=== PATIENT | male | born 1940 | race Caucasian/White ===

== ENCOUNTER 2017-11-17 21:13 | Inpatient (IN) ==
--- NOTE | 2017-11-17 21:37 | XR ---
EXAM DATE: 11/17/2017 9:32 PM EDT AGE/SEX: 89 years / Male INDICATIONS: Stemi alert. CLINICAL DATA: This is the patient's initial encounter. Patient reports that signs and symptoms have been present for 1 day and indicates a pain score of 4/10. MEDICAL/SURGICAL HISTORY: . Unobtainable. . Unobtainable. COMPARISON: No prior exams available for comparison. FINDINGS: A single AP view of the chest demonstrates the lungs to be symmetrically aerated without evidence of mass, infiltrate or effusion. The cardiomediastinal contours are unremarkable. Osseous structures a re intact. Mild atherosclerotic changes are present in the aorta. There are overlying electrocardiog delroy leads. CONCLUSION: No acute cardiopulmonary disease. Electronically signed by: Vinod Baptiste MD 11/17/2017 9:36 PM EDT
[2017-11-17] MEDS ORDERED: Sod Chloride 0.9% Inj 1,000 ML IV.SIG ONE ×2 (21:39→23:31)
[2017-11-17] MEDS ORDERED: Morphine Inj 4 MG/ML Vial IV.PUSH ONE (21:40)
[2017-11-17 21:55] LABS: Baso % (Auto) 0.4 % (0.0-2.0); Eos # (Auto) 0.1 th/mm3 (0.0-0.4); Eos % (Auto) 0.6 % (0.0-4.0); Hematocrit 41.2 % (39.0-51.0); Hemoglobin 13.1 gm/dL (13.0-17.0); Lymph # (Auto) 1.1 th/mm3 (1.0-4.8); Lymph % (Auto) 8.5 % (9.0-44.0); Mean Corpuscular HGB Conc 31.8 % (32.0-36.0); Mean Corpuscular Hemoglobin 29.9 pg (27.0-34.0); Mean Corpuscular Volume 93.9 fL (80.0-100.0); Mean Platelet Volume 9.6 fL (7.0-11.0); Mono % (Auto) 7.9 % (0.0-8.0); Neut # (Auto) 10.3 th/mm3 (1.8-7.7); Neut % (Auto) 82.6 % (16.0-70.0); Platelet Count 162 th/mm3 (150-450); Red Blood Count 4.39 mil/mm3 (4.50-5.90); Red Cell Distribution Width 14.4 % (11.6-17.2); White Blood Count 12.4 th/mm3 (4.0-11.0)
[2017-11-17 22:05] LABS: Activated Partial Thrombo Time 23.5 sec (24.3-30.1); INR 1.2 Ratio; Prothrombin Time 11.8 sec (9.8-11.6)
--- NOTE | 2017-11-17 22:19 | ED ---
HPI General Chief complaint: STEMI Alert Stated complaint: Stemi Time Seen by Provider: 11/17/17 21:36 Source: patient History of Present Illness HPI narrative: The patient is a reportedly 77 year old male who presents to the [facility] emergency department with a history of being brought in as a STEMI alert by ambulance services after the patient was noted to have ST segment elevation in the inferior leads and depression in the lateral leads. The patient denied having any chest pain, chest pressure, or shortness of breath. The patient reports that he called ambulance services for abdominal pain. He reports that the abdominal pain is a severe cramping sensation in the lower portion of his abdomen and bilateral lower quadrants. He reports that the abdominal pain began 1-1/2 hours ago. He reports that over the last week and a half he is also had diarrhea intermittently. He denies noticing any blood in his stool or black or tarry stools. Upon ambulance services arrival the patient's blood pressure was noted to be in the 80s systolic. The patient had IV access obtained and was given normal saline at 900 mL bolus times with improvement in his blood pressure up to 106 systolic just prior to arrival. The patient had dusky coloration to his lips, however his O2 saturation was reportedly 96% on room air. The patient's blood sugar prior to arrival was reportedly 219. The patient reportedly has a history of hypertension, diabetes , coronary artery disease with a stent placed previously. He cannot recall the name of his primary care physician or chair trimmer at this time. The patient denies having any known recent fevers, cough, congestion, neck pain, vomiting, urinary symptoms, or neurologic symptoms. Related Data Home Medications Medication Instructions Recorded Confirmed Unable to Obtain Home Meds 11/17/17 11/17/17 Allergies Allergy/AdvReac Type Severity Reaction Status Date / Time No Known Allergies Allergy Verified 11/17/17 21:15 Review of Systems ROS: all other systems reviewed are negative (Except for that which was mentioned in the HPI) FOR[facility]LY [facility] Medical History Medical History Diabetes (Acute) HTN (hypertension) (Acute) Social History Social History Substance History: No History of Abuse Smoking Status: Never smoker How Often Do You Have a Drink Containing Alcohol: Never Recent Travel in [facility] within the Last 8 Weeks: No Recent Out of Country Travel within the Last 8 Weeks: No Immunization History Tetanus Immunization: Unsure Hx Influenza Vaccine This Season: No Exam Const General: cooperative, well developed and acute distress (Related to abdominal pain that he reports is) severe Nutritional Appearance: well nourished Orientation: alert, awake and oriented x3 HENMT Head: normocephalic and atraumatic Nose: no nasal discharge and no epistaxis Mouth: moist mucous membranes Throat: posterior oropharynx normal and uvula midline Eyes Sclera: normal sclerae Pupils: PERRL Neck Neck: no meningeal signs, trachea midline and no JVD Resp Effort & Inspection: no use of accessory muscles Auscultation: clear to auscultation bilaterally Cardio Rate: regular rate Rhythm: regular rhythm Heart Sounds: no murmurs GI Inspection: non-distended and other (The patient is noted to have mottling of the skin along the lower abdomen.) Palpation: soft, no hepatosplenomegaly, no guarding, not rigid and tender in the LLQ, in the RLQ and other (No pulsatile mass palpated.); not in the epigastrum, not in the LUQ, not in the RUQ, not at McBurney's point, Hebert's sign negative and with no rebound tenderness Auscultation: normal bowel sounds Back/Spine/Pelvis Back: no CVA tenderness Skin General: dry skin (warm) Neuro General: alert and awake Cranial Nerves: other (No facial asymmetry.) Speech: speech normal Motor: strength 5/5 throughout, no movement abnormalities noted and tremor (A resting tremor is noted of the extremities. The patient reports that he is cold.) Sensory Exam: no sensory deficits noted Extrem General: normal to inspection (No calf tenderness on palpation. 2+ pulses in bilateral upper extremities, just a second 2+ dorsalis pedis pulse bilateral lower extremities, no palpable dorsalis pedis pulse. Capillary refill of feet is equal at 4 seconds bilaterally.), no clubbing, no cyanosis and no edema Psych Mood: congruent mood Affect: normal affect Judgment: judgment good Course Consultations Consultation #1: The patient's case including history, pertinent physical examination findings, and EKG were discussed with Dr. Stevenson, the chair trimmer. Given the patient's lack of chest pain, or shortness of breath, with prior history of a right bundle branch block, somewhat similar appearing EKG and prior record he requested that the STEMI be canceled. Time: 21:24 Consultation #2: Again I spoke to Dr. Stevenson regarding this patient's case and the elevated troponin at 0.49. I explained that the patient has now developed a diarrhea that has blood streaks. He agreed that the patient at this time should not be started on heparin. Time: 23:35 Consultation #3: The patient's case including history, pertinent physical examination findings, and laboratory studies were discussed with Dr. Sullivan. It was agreed that the patient would be admitted to the [facility] hospitalist service. Initial Documented Vital Signs Pulse Rate 96 H 11/17/17 21:15 Respiratory Rate 20 11/17/17 21:15 Blood Pressure 146/79 H 11/17/17 21:15 Pulse Oximetry 95 11/17/17 21:15 Last Documented Vital Signs Pulse Rate 90 11/18/17 05:19 Respiratory Rate 20 11/18/17 05:19 Blood Pressure 178/81 H 11/18/17 05:19 Pulse Oximetry 97 11/18/17 05:19 Critical Care Time Critical Care Time: Yes Total Critical Care Time: 45 Attestation: Aggregate critical care time was 45 minutes. Time to perform other separately billable procedures was not included in the critical care time. My time did not include minutes spent treating any other patients simultaneously or on activities that did not directly contribute to the patient's treatment. The services I provided to this patient were to treat and/or prevent clinically significant deterioration that could result in: Cardiovascular collapse from cardiac arrhythmia, versus cardiovascular collapse from hypovolemic shock, versus respiratory failure from fluid overload from crystalloid resuscitation I provided critical care services requiring my management, as noted below: Chart data review, documentation time, medication orders and management, vital sign assessments/reviewing monitor data, ordering and reviewing lab tests, ordering and interpreting/reviewing x-rays and diagnostic studies, care of the patient and discussion of the patient with the admitting physicians. Medical Decision Making MDM Narrative Medical decision making narrative: During the course of the patient's emergency department visit, the patient's history, examination, and differential diagnosis were reviewed with the patient. The patient was placed on a cafeteria monitor with oximetry and frequent blood pressure monitoring. The patient had IV access obtained and blood work sent for analysis. The diagnostic evaluation was started. A STEMI alert the patient's EKG showed a right bundle branch block , however there did appear to be ST segment elevation in the inferior leads, depression noted in lead I and aVL. I spoke to Dr. Ross, the [facility] chair trimmer continuous miner operator for semis. I was able to share the images of this patient's EKG, as well as his prior EKGs. Given the patient's current symptoms for STEMI alert was canceled as the patient's EKG does appear to be similar to a prior EKG done at this facility that does confirm a prior right bundle branch block. Blood cultures 2 were ordered, lactic acid was sent for analysis. A CT scan of the abdomen and pelvis has been ordered. The patient's i-STAT with creatinine revealed a sodium of 141, potassium 4, chloride 110, BUN 22, glucose 231, hemoglobin 12.6, creatinine 1.6. The patient was initially provided normal saline 1 L IV fluid bolus. The patient had morphine and Zofran ordered for pain and nausea. All fluids were being administered, the patient rapidly improved. The patient had 2 episodes of diarrhea. The diarrhea was grossly bloody. Stool cultures were sent for analysis. A C. difficile was sent for analysis. The risks of the patient's diagnostic evaluation was remarkable for a white count of 12.1, platelets 132, neutrophils 84.6, hemoglobin 12.9, PT 11.8, INR 1.2, PTT 23.5. Troponin I was 0.49 which was against discussed with Dr. Stevenson. He did not recommend heparin due to the bloody stools. Total protein 6.0, glucose 162, protein corrected calcium is 8.0, GFR 37, creatinine 1.60, chloride 113, calcium 7.4, BUN 21, albumin 3.0, lactic acid was initially 3.5, repeat lactic acid after continued fluid resuscitation was 2.1, lipase 71, BNP 160. A chest x-ray showed no acute abnormality, CT scan of the abdomen and pelvis showed an apparent mild acute diverticulitis involving the sigmoid colon, focal infrarenal saccular abdominal aortic aneurysm measuring up to 4.1 x 4.1 cm, patient status post cholecystectomy. The patient's results were discussed with the patient, including the plan of care. I explained that further testing and/ or monitoring is indicated based on the patient's history, examination, and/ or laboratory findings. Therefore, I recommended admission for additional evaluation. The patient expressed understanding and was agreeable with this plan. The patient was admitted to the hospital in guarded condition and sent to a bed under the care of the [facility] hospitalist service. Medical Screen Exam Complete: Yes Emergency Medical Condition: Yes Differential Diagnosis Differential Diagnosis: Colitis, versus diverticulitis, versus GI bleed, versus acute coronary syndrome, versus ischemic bowel, versus dissecting aortic aneurysm Medical Records Medical records reviewed: Yes I reviewed the patient's medical records. Lab Data Lab results reviewed: Yes I reviewed the patient's lab results. Result diagrams: 11/18/17 05:14 11/18/17 05:14 Lab Results 11/17/17 11/17/17 11/17/17 Range/Units 21:20 21:20 21:20 WBC (4.0-11.0) th/mm3 RBC (4.50-5.90) mil/mm3 Hgb (13.0-17.0) gm/dL POC Hgb (Calc) Cancelled Hct (39.0-51.0) % POC Hct Cancelled MCV (80.0-100.0) fL MCH (27.0-34.0) pg MCHC (32.0-36.0) % RDW (11.6-17.2) % Plt Count (150-450) th/mm3 MPV (7.0-11.0) fL Neut % (Auto) (16.0-70.0) % Lymph % (Auto) (9.0-44.0) % Stark % (Auto) (0.0-8.0) % Eos % (Auto) (0.0-4.0) % Baso % (Auto) (0.0-2.0) % Neut # (Auto) (1.8-7.7) th/mm3 Lymph # (Auto) (1.0-4.8) th/mm3 Stark # (Auto) (0.0-0.9) th/mm3 Eos # (Auto) (0.0-0.4) th/mm3 Baso # (Auto) (0.0-0.2) th/mm3 WBC Differential Differential Comment PT 11.8 H (9.8-11.6) sec INR 1.2 Ratio APTT 23.5 L (24.3-30.1) sec POC Sodium Cancelled Sodium (136-145) meq/L POC Potassium Cancelled Potassium (3.5-5.1) meq/L POC Chloride Cancelled Chloride (98-107) meq/L Carbon Dioxide (21.0-32.0) meq/L Anion Gap (5-15) meq/L POC BUN Cancelled BUN (7-18) mg/dL Creatinine (0.60-1.30) mg/dL POC Creatinine Cancelled Estimated GFR (>89) mL/min POC Glucose Cancelled Random Glucose (74-106) mg/dL Lactic Acid (0.4-2.0) mmol/L Calcium Cancelled Prot Corrected Calcium (8.5-10.1) mg/dL Magnesium Cancelled Total Bilirubin (0.2-1.0) mg/dL AST (15-37) U/L ALT (12-78) U/L Alkaline Phosphatase (45-117) U/L Total Creatine Kinase Cancelled Troponin I Cancelled B-Natriuretic Peptide 160 H (0-100) pg/mL Total Protein (6.4-8.2) g/dL Albumin (3.4-5.0) g/dL Lipase (73-393) U/L Stl C.difficile Tox PCR (Negative) St C. diff Tox Epid 027 (Negative) Blood Type Antibody Screen 11/17/17 11/17/17 11/17/17 Range/Units 21:20 21:20 21:53 WBC 12.4 H (4.0-11.0) th/mm3 RBC 4.39 L (4.50-5.90) mil/mm3 Hgb 13.1 (13.0-17.0) gm/dL POC Hgb (Calc) 12.6 L Hct 41.2 (39.0-51.0) % POC Hct 37.0 L MCV 93.9 (80.0-100.0) fL MCH 29.9 (27.0-34.0) pg MCHC 31.8 L (32.0-36.0) % RDW 14.4 (11.6-17.2) % Plt Count 162 (150-450) th/mm3 MPV 9.6 (7.0-11.0) fL Neut % (Auto) 82.6 H (16.0-70.0) % Lymph % (Auto) 8.5 L (9.0-44.0) % Stark % (Auto) 7.9 (0.0-8.0) % Eos % (Auto) 0.6 (0.0-4.0) % Baso % (Auto) 0.4 (0.0-2.0) % Neut # (Auto) 10.3 H (1.8-7.7) th/mm3 Lymph # (Auto) 1.1 (1.0-4.8) th/mm3 Stark # (Auto) 1.0 H (0.0-0.9) th/mm3 Eos # (Auto) 0.1 (0.0-0.4) th/mm3 Baso # (Auto) 0.0 (0.0-0.2) th/mm3 WBC Differential . Differential Comment Auto diff final PT (9.8-11.6) sec INR Ratio APTT (24.3-30.1) sec POC Sodium 141 Sodium 142 (136-145) meq/L POC Potassium 4.0 Potassium 4.2 (3.5-5.1) meq/L POC Chloride 110 Chloride 112 H (98-107) meq/L Carbon Dioxide 18.6 L (21.0-32.0) meq/L Anion Gap 11 (5-15) meq/L POC BUN 22 H BUN 21 H (7-18) mg/dL Creatinine 1.80 H (0.60-1.30) mg/dL POC Creatinine 1.6 H Estimated GFR 33 L (>89) mL/min POC Glucose 231 H Random Glucose 224 H (74-106) mg/dL Lactic Acid 3.5 H (0.4-2.0) mmol/L Calcium 7.6 L Prot Corrected Calcium (8.5-10.1) mg/dL Magnesium 1.7 Total Bilirubin 0.6 (0.2-1.0) mg/dL AST 18 (15-37) U/L ALT 16 (12-78) U/L Alkaline Phosphatase 84 (45-117) U/L Total Creatine Kinase 86 Troponin I 0.43 H B-Natriuretic Peptide (0-100) pg/mL Total Protein 5.9 L (6.4-8.2) g/dL Albumin 3.1 L (3.4-5.0) g/dL Lipase 71 L (73-393) U/L Stl C.difficile Tox PCR (Negative) St C. diff Tox Epid 027 (Negative) Blood Type Antibody Screen 11/17/17 11/17/17 11/18/17 Range/Units 22:27 23:03 00:35 WBC (4.0-11.0) th/mm3 RBC (4.50-5.90) mil/mm3 Hgb (13.0-17.0) gm/dL POC Hgb (Calc) Hct (39.0-51.0) % POC Hct MCV (80.0-100.0) fL MCH (27.0-34.0) pg MCHC (32.0-36.0) % RDW (11.6-17.2) % Plt Count (150-450) th/mm3 MPV (7.0-11.0) fL Neut % (Auto) (16.0-70.0) % Lymph % (Auto) (9.0-44.0) % Stark % (Auto) (0.0-8.0) % Eos % (Auto) (0.0-4.0) % Baso % (Auto) (0.0-2.0) % Neut # (Auto) (1.8-7.7) th/mm3 Lymph # (Auto) (1.0-4.8) th/mm3 Stark # (Auto) (0.0-0.9) th/mm3 Eos # (Auto) (0.0-0.4) th/mm3 Baso # (Auto) (0.0-0.2) th/mm3 WBC Differential Differential Comment PT (9.8-11.6) sec INR Ratio APTT (24.3-30.1) sec POC Sodium Sodium (136-145) meq/L POC Potassium Potassium (3.5-5.1) meq/L POC Chloride Chloride (98-107) meq/L Carbon Dioxide (21.0-32.0) meq/L Anion Gap (5-15) meq/L POC BUN BUN (7-18) mg/dL Creatinine (0.60-1.30) mg/dL POC Creatinine Estimated GFR (>89) mL/min POC Glucose Random Glucose (74-106) mg/dL Lactic Acid 2.1 H (0.4-2.0) mmol/L Calcium Prot Corrected Calcium (8.5-10.1) mg/dL Magnesium Total Bilirubin (0.2-1.0) mg/dL AST (15-37) U/L ALT (12-78) U/L Alkaline Phosphatase (45-117) U/L Total Creatine Kinase Troponin I B-Natriuretic Peptide (0-100) pg/mL Total Protein (6.4-8.2) g/dL Albumin (3.4-5.0) g/dL Lipase (73-393) U/L Stl C.difficile Tox PCR Negative (Negative) St C. diff Tox Epid 027 Negative (Negative) Blood Type O Positive Antibody Screen Negative 11/18/17 11/18/17 Range/Units 05:14 05:14 WBC 12.1 H (4.0-11.0) th/mm3 RBC 4.31 L (4.50-5.90) mil/mm3 Hgb 12.9 L (13.0-17.0) gm/dL POC Hgb (Calc) Hct 40.1 (39.0-51.0) % POC Hct MCV 93.0 (80.0-100.0) fL MCH 30.0 (27.0-34.0) pg MCHC 32.3 (32.0-36.0) % RDW 14.1 (11.6-17.2) % Plt Count 132 L (150-450) th/mm3 MPV 9.3 (7.0-11.0) fL Neut % (Auto) 84.6 H (16.0-70.0) % Lymph % (Auto) 4.3 L (9.0-44.0) % Stark % (Auto) 10.8 H (0.0-8.0) % Eos % (Auto) 0.1 (0.0-4.0) % Baso % (Auto) 0.2 (0.0-2.0) % Neut # (Auto) 10.2 H (1.8-7.7) th/mm3 Lymph # (Auto) 0.5 L (1.0-4.8) th/mm3 Stark # (Auto) 1.3 H (0.0-0.9) th/mm3 Eos # (Auto) 0.0 (0.0-0.4) th/mm3 Baso # (Auto) 0.0 (0.0-0.2) th/mm3 WBC Differential . Differential Comment Auto diff final PT (9.8-11.6) sec INR Ratio APTT (24.3-30.1) sec POC Sodium Sodium 143 (136-145) meq/L POC Potassium Potassium 4.8 (3.5-5.1) meq/L POC Chloride Chloride 113 H (98-107) meq/L Carbon Dioxide 22.6 (21.0-32.0) meq/L Anion Gap 7 (5-15) meq/L POC BUN BUN 21 H (7-18) mg/dL Creatinine 1.60 H (0.60-1.30) mg/dL POC Creatinine Estimated GFR 37 L (>89) mL/min POC Glucose Random Glucose 162 H (74-106) mg/dL Lactic Acid (0.4-2.0) mmol/L Calcium 7.4 L* Prot Corrected Calcium 8.0 L (8.5-10.1) mg/dL Magnesium Total Bilirubin 0.4 (0.2-1.0) mg/dL AST 21 (15-37) U/L ALT 18 (12-78) U/L Alkaline Phosphatase 81 (45-117) U/L Total Creatine Kinase Troponin I 0.49 H B-Natriuretic Peptide (0-100) pg/mL Total Protein 6.0 L (6.4-8.2) g/dL Albumin 3.0 L (3.4-5.0) g/dL Lipase (73-393) U/L Stl C.difficile Tox PCR (Negative) St C. diff Tox Epid 027 (Negative) Blood Type Antibody Screen Imaging Data Radiologist's impression: Chest X-Ray 11/17/17 00:00 CONCLUSION: No acute cardiopulmonary disease. Abdomen/Pelvis CT 11/17/17 22:10 CONCLUSION: 1. Apparent mild acute diverticulitis involving the sigmoid colon. 2. Focal infrarenal saccular abdominal aortic aneurysm measuring up to 4.1 x 4.1 cm. 3. Status post cholecystectomy. ECG Data Attestation: I personally reviewed and interpreted this ECG as follows: Interpretation: The patient had a EKG done on arrival that showed an uncertain origin of irregular heart rhythm that is 96, QRS duration 159 ms with a right bundle branch block noted, QTC [address] segment elevation is noted in inferior leads, depression is noted in lead I, aVL. Discharge Plan Discharge Disposition Patient Disposition: 30 Still Patient Discharge Details Diagnosis: Diverticulitis, Sepsis, Abdominal aortic aneurysm, Elevated troponin I level Physicians Team ED Provider: Wanda Jimenes Primary Care Provider: UNKNOWN, Attending Provider: Michael Dickson Other Providers: Tico Stevenson Discharge Interventions Interventions: Vital Signs Last Done: 11/18/17 00:53 Status ED Status: Admitted Patient
[2017-11-17] MEDS ORDERED: Pantoprazole Inj 40 MG Vial IV.PUSH ONE (22:28)
[2017-11-17 22:40] LABS: Albumin 3.1 g/dL (3.4-5.0); Anion Gap 11 meq/L (5-15); Aspartate Aminotransferase 18 U/L (15-37); Blood Urea Nitrogen 21 mg/dL (7-18); Calcium 7.6 mg/dL (8.5-10.1); Carbon Dioxide 18.6 meq/L (21.0-32.0); Chloride 112 meq/L (98-107); Glomerular Filtration Rate 33 mL/min (>89); Glucose,Random 224 mg/dL (74-106); Lipase 71 U/L (73-393); Magnesium 1.7 mg/dL (1.5-2.5); Potassium 4.2 meq/L (3.5-5.1); Sodium 142 meq/L (136-145)
[2017-11-17 22:41] LABS: Alanine Aminotransferase 16 U/L (12-78)
[2017-11-17 22:45] LABS: Alkaline Phosphatase 84 U/L (45-117); Total Protein 5.9 g/dL (6.4-8.2); Troponin I 0.43 ng/mL (0.02-0.05)
[2017-11-17 22:54] LABS: Creatine Kinase 86 U/L (39-308)
--- NOTE | 2017-11-17 22:55 | CT ---
EXAM DATE: 11/17/2017 10:42 PM EDT AGE/SEX: 89 years / Male INDICATIONS: Bilateral low abdomen pain. CLINICAL DATA: This is the patient's initial encounter. Patient reports that signs and symptoms have been present for 1 day and indicates a pain score of 8/10. MEDICAL/SURGICAL HISTORY: Hypertension. None. RADIATION DOSE: 6.84 CTDI (mGy) COMPARISON: No prior exams available for comparison. TECHNIQUE: Multiple contiguous axial images were obtained through the abdomen. Images were obtained using multiple row detector helical technique. Using automated exposure control and adjustment of the mA and/or kV according to patient size, radiation dose was kept as low as reasonably achievable to o btain optimal diagnostic quality images. DICOM format image data is available electronically for rev iew and comparison. FINDINGS: Lower Lungs: The visualized lower lungs are clear. Liver: The liver has a homogeneous density without space-occupying lesion. There is no dilation of th e biliary tree. The patient is status post cholecystectomy. Spleen: Homogeneous density without enlargement. Multiple small splenic granulomas which are calcifi ed. Pancreas: Unremarkable without mass or calcification. Kidneys: Normal in size and shape. No evidence of mass or hydronephrosis. Adrenal Glands: Unremarkable. Aorta: There is a focal infrarenal saccular abdominal aortic aneurysm measuring up to 4.1 x 4.1 cm in greatest AP and transverse diameter. This extends approximately 6 cm in greatest caudocranial dime nsion and tapers down above the level of bifurcation. There is mild atherosclerotic changes and dilat ation of common iliac arteries. Bowel/Mesentery: No oral contrast was given limiting the sensitivity of the exam. There are multiple diverticuli in the sigmoid colon and apparent mild inflammatory change in the mesentery. There is no free air or fluid. Liquid stool is present in the sigmoid. Terminal ileum appears unremarkable. The c ecum and sigmoid colon have a normal configuration. Abdominal Wall: Intact. Retroperitoneum: No evidence of adenopathy in the retrocrural, para-aortic, or deep pelvic regions. Bladder: Contours are smooth. Reproductive Organs: No abnormal masses or calcifications seen. Inguinal: The inguinal region is unremarkable without evidence of adenopathy. Bony Structures: Unremarkable. CONCLUSION: 1. Apparent mild acute diverticulitis involving the sigmoid colon. 2. Focal infrarenal saccular abdominal aortic aneurysm measuring up to 4.1 x 4.1 cm. 3. Status post cholecystectomy. Electronically signed by: Vinod Baptiste MD 11/17/2017 10:54 PM EDT
[2017-11-17] MEDS: Pantoprazole Inj 80 MG in Sodium Chlor 0.9% Inj 100 ML IV.CONT SCH (23:04)
[2017-11-17] MEDS ORDERED: Piperacil/Tazo 3.375 GM Premix 50 ML IV.SIG ONE (23:32)
[2017-11-17] MEDS: Sod Chloride 0.9% Inj 1,000 ML IV.CONT SCH (23:58)
--- NOTE | 2017-11-18 00:14 | P.HP ---
History of Present Illness Service: [facility] hospitalist Primary Care Physician: UNKNOWN Chief Complaint: brought in by evac poorly responsive History of Present Illness: The patient is a reportedly 77 year old male who presents to the [facility] emergency department with a history of being brought in as a STEMI alert by ambulance services after the patient was noted to have ST segment elevation in the inferior leads and depression in the lateral leads. The patient denied having any chest pain, chest pressure, or shortness of breath. The patient reports that he called ambulance services for abdominal pain. He reports that the abdominal pain is a severe cramping sensation in the lower portion of his abdomen and bilateral lower quadrants. He reports that the abdominal pain began 1-1/2 hours ago. He reports that over the last week and a half he is also had diarrhea intermittently. He denies noticing any blood in his stool or black or tarry stools. Upon ambulance services arrival the patient's blood pressure was noted to be in the 80s systolic. The patient had IV access obtained and was given normal saline at 900 mL bolus times with improvement in his blood pressure up to 106 systolic just prior to arrival. The patient had dusky coloration to his lips, however his O2 saturation was reportedly 96% on room air. The patient's blood sugar prior to arrival was reportedly 219. The patient reportedly has a history of hypertension, diabetes, coronary artery disease with a stent placed previously. He cannot recall the name of his primary care physician or targeting acquisition officer at this time. The patient denies having any known recent fevers, cough, congestion, neck pain, vomiting, urinary symptoms, or neurologic symptoms. Patient does not recall any of his home medications and did call his sister who will retrieve the list in AM. According to patient his sister comes to his house and gives him his medications. Patient has slight elevation troponin and ekg on review may have chronic changes ,lab work suggests sepsis ,and CT abdomen suggests diverticulitis . Patient will start on antibiotics tonight with fluids. - Diagnosis (1) Sepsis (2) Diverticulitis (3) Elevated troponin Inpatient Certification: I certify that the inpatient services were ordered in accordance with Medicare regulations governing the order. This includes certification that hospital inpatient services are reasonable and necessary and in the case of services not specified as inpatient-only under 42 CFR 419.22(n), that they are appropriately provided as inpatient services in accordance to with the 2-midnight benchmark under 43 CFR 412.3(e) Review of Systems All other systems reviewed negative except as stated in HPI [facility] - History History Provided By: Patient - Medical / Surgical Hx Neg / Unobtainable Medical Problems Denied: Unable to Obtain Surgical History: Unable to Obtain - Medical History Medical History: Medical History (Last Updated 11/17/17 @ 21:18 by Wesley Beth) Diabetes HTN (hypertension) - Tobacco History Tobacco Use In Past 30 Days: No Smoking Status: Never smoker - Alcohol History How Often Do You Have a Drink Containing Alcohol: Never - Substance Use History Substance History: No History of Abuse - Travel History Recent Travel in the [place] Within the Last 8 Weeks: No Recent Travel Out of the Country Within the Last 8 Weeks: No - Immunization History Tetanus Immunization: Unsure Hx Influenza Vaccine This Season: No Medications and Allergies Active Medications: Active Medications Pantoprazole Sodium 80 mg/ (Sodium Chloride) 100 mls @ 10 mls/hr IV.CONT CONT JOEL Last Admin: 11/17/17 23:04 Dose: 10 mls/hr Sodium Chloride (Ns Inj) 1,000 mls @ 125 mls/hr IV.CONT .Q8H JOEL Last Admin: 11/17/17 23:58 Dose: 125 mls/hr Metronidazole/Sodium Chloride (Flagyl 500 Mg Inj) 100 mls @ 100 mls/hr IV.SIG ONCE ONE Stop: 11/18/17 00:31 Last Admin: 11/17/17 23:58 Dose: 100 mls/hr Metronidazole/Sodium Chloride (Flagyl 500 Mg Inj) 100 mls @ 100 mls/hr IV.SIG Q8H JOEL Piperacillin/Tazobactam/Dextrose (Zosyn 3.375 Gm Premix) 50 mls @ 100 mls/hr IV.SIG Q6H JOEL Sodium Chloride (Ns Flush) 2 ml IV.FLUSH PRN PRN PRN Reason: FLUSH AFTER USING IV ACCESS Allergies Allergy/AdvReac Type Severity Reaction Status Date / Time No Known Allergies Allergy Verified 11/17/17 21:15 Home Medications Medication Instructions Recorded Confirmed Type Unable to Obtain Home Meds 11/17/17 11/17/17 History Exam Vital signs: Vital Signs 11/17/17 21:15 11/17/17 21:19 11/17/17 21:27 Pulse Rate 96 H 110 H 109 H Respiratory Rate 20 20 18 Blood Pressure 146/79 H 158/88 H 157/89 H Pulse Oximetry 95 98 100 11/17/17 22:05 11/17/17 22:08 11/17/17 22:24 Pulse Rate 99 H Respiratory Rate 18 Blood Pressure 146/67 H Pulse Oximetry 100 100 100 11/17/17 23:00 Pulse Rate 106 H Respiratory Rate 18 Blood Pressure 150/68 H Pulse Oximetry 100 Intake & Output 11/17/17 11/17/17 11/18/17 06:59 18:59 06:59 Weight 83.461 kg Narrative: GENERAL: SKIN: Warm and dry. HEAD: Normocephalic. EYES: No scleral icterus. No injection or drainage. NECK: Supple, trachea midline. No JVD or lymphadenopathy. CARDIOVASCULAR: Regular rate and rhythm without murmurs, gallops, or rubs. RESPIRATORY: Breath sounds equal bilaterally. No accessory muscle use. GASTROINTESTINAL: Abdomen soft, non-tender, nondistended. MUSCULOSKELETAL: No cyanosis, or edema. BACK: Nontender without obvious deformity. No CVA tenderness. Neurology- confused but able to answer simple questions Results - Labs CBC & Chem 7: 11/17/17 21:20 11/17/17 21:20 Labs: Laboratory Results - last 24 hr 11/17/17 11/17/17 11/17/17 21:20 21:20 21:20 WBC RBC Hgb POC Hgb (Calc) Cancelled Hct POC Hct Cancelled MCV MCH MCHC RDW Plt Count MPV Neut % (Auto) Lymph % (Auto) [place] % (Auto) Eos % (Auto) Baso % (Auto) Neut # (Auto) Lymph # (Auto) [place] # (Auto) Eos # (Auto) Baso # (Auto) WBC Differential Differential Comment PT 11.8 H INR 1.2 APTT 23.5 L POC Sodium Cancelled Sodium POC Potassium Cancelled Potassium POC Chloride Cancelled Chloride Carbon Dioxide Anion Gap POC BUN Cancelled BUN Creatinine POC Creatinine Cancelled Estimated GFR POC Glucose Cancelled Random Glucose Lactic Acid Calcium Cancelled Magnesium Cancelled Total Bilirubin AST ALT Alkaline Phosphatase Total Creatine Kinase Cancelled Troponin I Cancelled B-Natriuretic Peptide 160 H Total Protein Albumin Lipase Stl C.difficile Tox PCR St C. diff Tox Epid 027 Blood Type 11/17/17 11/17/17 11/17/17 21:20 21:20 21:53 WBC 12.4 H RBC 4.39 L Hgb 13.1 POC Hgb (Calc) 12.6 L Hct 41.2 POC Hct 37.0 L MCV 93.9 MCH 29.9 MCHC 31.8 L RDW 14.4 Plt Count 162 MPV 9.6 Neut % (Auto) 82.6 H Lymph % (Auto) 8.5 L [place] % (Auto) 7.9 Eos % (Auto) 0.6 Baso % (Auto) 0.4 Neut # (Auto) 10.3 H Lymph # (Auto) 1.1 [place] # (Auto) 1.0 H Eos # (Auto) 0.1 Baso # (Auto) 0.0 WBC Differential . Differential Comment Auto diff final PT INR APTT POC Sodium 141 Sodium 142 POC Potassium 4.0 Potassium 4.2 POC Chloride 110 Chloride 112 H Carbon Dioxide 18.6 L Anion Gap 11 POC BUN 22 H BUN 21 H Creatinine 1.80 H POC Creatinine 1.6 H Estimated GFR 33 L POC Glucose 231 H Random Glucose 224 H Lactic Acid 3.5 H Calcium 7.6 L Magnesium 1.7 Total Bilirubin 0.6 AST 18 ALT 16 Alkaline Phosphatase 84 Total Creatine Kinase 86 Troponin I 0.43 H B-Natriuretic Peptide Total Protein 5.9 L Albumin 3.1 L Lipase 71 L Stl C.difficile Tox PCR St C. diff Tox Epid 027 Blood Type 11/17/17 11/17/17 22:27 23:03 WBC RBC Hgb POC Hgb (Calc) Hct POC Hct MCV MCH MCHC RDW Plt Count MPV Neut % (Auto) Lymph % (Auto) [place] % (Auto) Eos % (Auto) Baso % (Auto) Neut # (Auto) Lymph # (Auto) [place] # (Auto) Eos # (Auto) Baso # (Auto) WBC Differential Differential Comment PT INR APTT POC Sodium Sodium POC Potassium Potassium POC Chloride Chloride Carbon Dioxide Anion Gap POC BUN BUN Creatinine POC Creatinine Estimated GFR POC Glucose Random Glucose Lactic Acid Calcium Magnesium Total Bilirubin AST ALT Alkaline Phosphatase Total Creatine Kinase Troponin I B-Natriuretic Peptide Total Protein Albumin Lipase Stl C.difficile Tox PCR Negative St C. diff Tox Epid 027 Negative Blood Type O Positive - Imaging Impressions Chest X-Ray 11/17/17 00:00 CONCLUSION: No acute cardiopulmonary disease. Abdomen/Pelvis CT 11/17/17 22:10 CONCLUSION: 1. Apparent mild acute diverticulitis involving the sigmoid colon. 2. Focal infrarenal saccular abdominal aortic aneurysm measuring up to 4.1 x 4.1 cm. 3. Status post cholecystectomy. Caprini VTE Risk Assessment Caprini VTE Risk Assessment: Moderate/High Risk (score >= 2) Caprini Risk Assessment Model: Point Value = 1 Point Value = 2 Point Value = 3 Point Value = 5 Age 41-60 Minor surgery BMI > 25 kg/m2 Swollen legs Varicose veins or History of unexplained or recurrent spontaneous Oral contraceptives or hormone replacement Sepsis (< 1 month) Serious lung disease, including pneumonia (< 1 month) Abnormal pulmonary function Acute myocardial infarction Congestive heart failure (< 1 month) History of inflammatory bowel disease Medical patient at bed rest Age 61-74 Arthroscopic surgery Major open surgery (> 45 min) Laparoscopic surgery (> 45 min) Malignancy Confined to bed (> 72 hours) Immobilizing plaster cast Central venous access Age >= 75 History of VTE Family history of VTE Factor V Leiden Prothrombin [id number] Lupus anticoagulant Anticardiolipin antibodies Elevated serum homocysteine Heparin-induced thrombocytopenia Other congenital or acquired thrombophilia Stroke (< 1 month) Elective arthroplasty Hip, pelvis, or leg fracture Acute spinal cord injury (< 1 month) Prophylaxis Regimen: Total Risk Factor Score Risk Level Prophylaxis Regimen 0-1 Low Early ambulation 2 Moderate Order ONE of the following: *Sequential Compression Device (SCD) *Heparin 5000 units SQ BID 3-4 Higher Order ONE of the following medications: *Heparin 5000 units SQ TID *Enoxaparin/Lovenox 40 mg SQ daily (WT < 150 kg, CrCl > 30 mL/min) *Enoxaparin/Lovenox 30 mg SQ daily (WT < 150 kg, CrCl > 10-29 mL/min) *Enoxaparin/Lovenox 30 mg SQ BID (WT < 150 kg, CrCl > 30 mL/min) AND/OR *Sequential Compression Device (SCD) 5 or more Highest Order ONE of the following medications: *Heparin 5000 units SQ TID (Preferred with Epidurals) *Enoxaparin/Lovenox 40 mg SQ daily (WT < 150 kg, CrCl > 30 mL/min) *Enoxaparin/Lovenox 30 mg SQ daily (WT < 150 kg, CrCl > 10-29 mL/min) *Enoxaparin/Lovenox 30 mg SQ BID (WT < 150 kg, CrCl > 30 mL/min) AND *Sequential Compression Device (SCD) Assessment and Plan - Assessment (1) Sepsis Code(s): A41.9 - Sepsis, unspecified organism Status: Acute Plan: based on lab work lactic acid protocol cultures obtained (2) Diverticulitis Code(s): K57.92 - Diverticulitis of intestine, part unspecified, without perforation or abscess without bleeding Status: Acute Plan: start iv antibiotics flagyl and zosyn (3) Elevated troponin Code(s): R74.8 - Abnormal levels of other serum enzymes Status: Acute Plan: cardiology aware follow up levels with ekg - Plan need to obtain patient home medication list further plan as case develops Code Status: full Discussed Condition With: patient
[2017-11-18] MEDS ORDERED: Temazepam 15 MG Capsule PO PRN (01:28)
[2017-11-18] MEDS ORDERED: Bisacodyl 10 MG Supp RECTAL PRN (01:28)
[2017-11-18 05:28] LABS: Baso % (Auto) 0.2 % (0.0-2.0); Eos % (Auto) 0.1 % (0.0-4.0); Hematocrit 40.1 % (39.0-51.0); Hemoglobin 12.9 gm/dL (13.0-17.0); Lymph # (Auto) 0.5 th/mm3 (1.0-4.8); Lymph % (Auto) 4.3 % (9.0-44.0); Mean Corpuscular HGB Conc 32.3 % (32.0-36.0); Mean Platelet Volume 9.3 fL (7.0-11.0); Mono # (Auto) 1.3 th/mm3 (0.0-0.9); Mono % (Auto) 10.8 % (0.0-8.0); Neut # (Auto) 10.2 th/mm3 (1.8-7.7); Neut % (Auto) 84.6 % (16.0-70.0); Platelet Count 132 th/mm3 (150-450); Red Blood Count 4.31 mil/mm3 (4.50-5.90); Red Cell Distribution Width 14.1 % (11.6-17.2); White Blood Count 12.1 th/mm3 (4.0-11.0)
[2017-11-18 06:01] LABS: Calcium 7.4 mg/dL (8.5-10.1); Carbon Dioxide 22.6 meq/L (21.0-32.0); Potassium 4.8 meq/L (3.5-5.1); Troponin I 0.49 ng/mL (0.02-0.05)
[2017-11-18] MEDS: Piperacil/Tazo 3.375 GM Premix 50 ML IV.SIG SCH ×3 (06:09→21:16)
--- NOTE | 2017-11-18 07:43 | P.CONCA ---
History of Present Illness Primary Care Provider: UNKNOWN Chief Complaint: brought in by evac poorly responsive History of Present Illness: 77-year-old male who presented for abdominal pain. The patient states that he was having lower abdominal pain and feeling faint so he called the ambulance. His EKG shows right bundle branch block, inferior Q waves, nonspecific T-wave changes; all chronic findings and unchanged from previous EKG 08/31/16. He denies any chest pain or shortness of breath. He reports she has been having vomiting for 2 weeks. He has been having diarrhea for the past few days which was noted to be bloody in the ED. He complains of lower abdominal discomfort. CT was done which shows diverticulitis. He was found to meet sepsis criteria with leukocytosis and tachycardia. His creatinine was found to be elevated at 1.8. His troponins are 0.43, 0.49. Review of Systems All other systems reviewed negative except as stated in HPI [facility] [place] - History History Provided By: Patient - Medical / Surgical Hx Neg / Unobtainable Medical Problems Denied: Unable to Obtain - Medical History Medical History: Medical History (Last Updated 11/17/17 @ 21:18 by Wesley Beth) Diabetes HTN (hypertension) - Tobacco History Tobacco Use In Past 30 Days: No Smoking Status: Never smoker - Alcohol History How Often Do You Have a Drink Containing Alcohol: Never - Substance Use History Substance History: No History of Abuse - Travel History Recent Travel in the [place] Within the Last 8 Weeks: No Recent Travel Out of the Country Within the Last 8 Weeks: No - Immunization History Tetanus Immunization: Unsure Hx Influenza Vaccine This Season: No Medications and Allergies Active Medications: Active Medications Al Hydroxide/Mg Hydroxide (Milk Of Rosa Liq) 30 ml PO Q12H PRN PRN Reason: Mild Constipation Bisacodyl (Dulcolax Supp) 10 mg RECTAL DAILY PRN PRN Reason: SEVERE CONSITIPATION Pantoprazole Sodium 80 mg/ (Sodium Chloride) 100 mls @ 10 mls/hr IV.CONT CONT JOEL Last Admin: 11/17/17 23:04 Dose: 10 mls/hr Sodium Chloride (Ns Inj) 1,000 mls @ 125 mls/hr IV.CONT .Q8H JOEL Last Admin: 11/17/17 23:58 Dose: 125 mls/hr Metronidazole/Sodium Chloride (Flagyl 500 Mg Inj) 100 mls @ 100 mls/hr IV.SIG Q8H JOEL Piperacillin/Tazobactam/Dextrose (Zosyn 3.375 Gm Premix) 50 mls @ 100 mls/hr IV.SIG Q6H JOEL Last Admin: 11/18/17 06:09 Dose: 100 mls/hr Lactulose (Lactulose Liq) 30 ml PO DAILY PRN PRN Reason: SEVERE CONSITIPATION Ondansetron HCl (Zofran Inj) 4 mg IV.PUSH Q6H PRN PRN Reason: NAUSEA OR VOMITING Senna/Docusate Sodium (Rena-Colace) 1 tab PO BID JOEL Sennosides (Senokot) 17.2 mg PO Q12H PRN PRN Reason: Moderate Constipation Sodium Chloride (Ns Flush) 2 ml IV.FLUSH PRN PRN PRN Reason: FLUSH AFTER USING IV ACCESS Temazepam (Restoril) 15 mg PO HS PRN PRN Reason: INSOMNIA Allergies Allergy/AdvReac Type Severity Reaction Status Date / Time No Known Allergies Allergy Verified 11/17/17 21:15 Home Medications Medication Instructions Recorded Confirmed Type Unable to Obtain Home Meds 11/17/17 11/17/17 History Exam Vital signs: Vital Signs 11/17/17 21:15 11/17/17 21:19 11/17/17 21:27 Pulse Rate 96 H 110 H 109 H Respiratory Rate 20 20 18 Blood Pressure 146/79 H 158/88 H 157/89 H Pulse Oximetry 95 98 100 11/17/17 22:05 11/17/17 22:08 11/17/17 22:24 Pulse Rate 99 H Respiratory Rate 18 Blood Pressure 146/67 H Pulse Oximetry 100 100 100 11/17/17 23:00 11/18/17 00:00 11/18/17 00:53 Pulse Rate 106 H 106 H 98 H Respiratory Rate 18 18 18 Blood Pressure 150/68 H 187/79 H 170/71 H Pulse Oximetry 100 97 98 11/18/17 02:59 11/18/17 05:19 11/18/17 07:01 Pulse Rate 104 H 90 84 Respiratory Rate 18 20 Blood Pressure 169/79 H 178/81 H 146/70 H Pulse Oximetry 98 97 Intake & Output 11/17/17 11/18/17 11/18/17 18:59 06:59 18:59 Intake Total 2150 / 2150 Balance 2150 / 2150 Weight 184 lb Intake: IV 2149 Zosyn 3.375 GM Premix 50 ML @ 50 / 50 100 mls/hr IV.SIG ONCE ONE Rx#: [id number] NS Inj 1,000 ML @ Wide Open IV. 1999 SIG BOLUS ONE Rx#:[id number] Flagyl 500 MG Inj 100 ML @ 100 100 / 100 mls/hr IV.SIG ONCE ONE Rx#: [id number] Narrative: GENERAL: Well-developed well-nourished. In no acute distress. NECK: No carotid bruits. No JVD. CARDIOVASCULAR: Regular rate and rhythm. No murmur appreciated. RESPIRATORY: No accessory muscle use. Clear to auscultation. Breath sounds equal bilaterally. MUSCULOSKELETAL: No clubbing or cyanosis. No edema. NEUROLOGICAL: Awake and alert. Normal speech. Results 11/18/17 05:14 11/18/17 05:14 Cardiac Enzymes 11/17/17 11/17/17 11/17/17 Range/Units 21:20 21:20 21:20 AST 18 (15-37) U/L Troponin I Cancelled 0.43 H B-Natriuretic Peptide 160 H (0-100) pg/mL 11/18/17 Range/Units 05:14 AST 21 (15-37) U/L Troponin I 0.49 H B-Natriuretic Peptide (0-100) pg/mL Coagulation 11/17/17 11/17/17 Range/Units 21:20 21:20 PT 11.8 H (9.8-11.6) sec APTT 23.5 L (24.3-30.1) sec B-Natriuretic Peptide 160 H (0-100) pg/mL CBC 11/17/17 11/18/17 Range/Units 21:20 05:14 WBC 12.4 H 12.1 H (4.0-11.0) th/mm3 RBC 4.39 L 4.31 L (4.50-5.90) mil/mm3 Hgb 13.1 12.9 L (13.0-17.0) gm/dL Hct 41.2 40.1 (39.0-51.0) % Plt Count 162 132 L (150-450) th/mm3 Neut # (Auto) 10.3 H 10.2 H (1.8-7.7) th/mm3 Lymph # (Auto) 1.1 0.5 L (1.0-4.8) th/mm3 [place] # (Auto) 1.0 H 1.3 H (0.0-0.9) th/mm3 Eos # (Auto) 0.1 0.0 (0.0-0.4) th/mm3 Baso # (Auto) 0.0 0.0 (0.0-0.2) th/mm3 Comprehensive Metabolic Panel 11/17/17 11/17/17 11/18/17 Range/Units 21:20 21:20 05:14 Sodium 142 143 (136-145) meq/L Potassium 4.2 4.8 (3.5-5.1) meq/L Chloride 112 H 113 H (98-107) meq/L Carbon Dioxide 18.6 L 22.6 (21.0-32.0) meq/L BUN 21 H 21 H (7-18) mg/dL Creatinine 1.80 H 1.60 H (0.60-1.30) mg/dL Calcium Cancelled 7.6 L 7.4 L* AST 18 21 (15-37) U/L ALT 16 18 (12-78) U/L Alkaline Phosphatase 84 81 (45-117) U/L Total Protein 5.9 L 6.0 L (6.4-8.2) g/dL Albumin 3.1 L 3.0 L (3.4-5.0) g/dL Intake and Output 11/17/17 11/18/17 11/18/17 22:59 06:59 14:59 Intake Total 2149 Balance 2149 Intake: IV 2149 / 2149 Zosyn 3.375 GM Premix 50 ML @ 50 / 50 100 mls/hr IV.SIG ONCE ONE Rx#: [id number] NS Inj 1,000 ML @ Wide Open IV. 1999 SIG BOLUS ONE Rx#:[id number] Flagyl 500 MG Inj 100 ML @ 100 100 / 100 mls/hr IV.SIG ONCE ONE Rx#: [id number] Other: Weight 184 lb Assessment and Plan - Plan 77-year-old male who presented for abdominal pain. The patient states that he was having lower abdominal pain and feeling faint so he called the ambulance. His EKG shows right bundle branch block, inferior Q waves, nonspecific T-wave changes; all chronic findings and unchanged from previous EKG 08/31/16. He denies any chest pain or shortness of breath. He reports she has been having vomiting for 2 weeks. He has been having diarrhea for the past few days which was noted to be bloody in the ED. He complains of lower abdominal discomfort. CT was done which shows diverticulitis. He was found to meet sepsis criteria with leukocytosis and tachycardia. His creatinine was found to be elevated at 1.8. His troponins are 0.43, 0.49. Abnormal EKG with elevated troponin.: Troponins are elevated in indeterminate range; likely demand mediated secondary to infection/sepsis and dehydration. EKG findings are chronic and unchanged. No symptoms consistent with angina. No further cardiac workup indicated at this time and would not continue to trend troponins. Discussed Condition With: Patient, RN, Dr. Stevenson
[2017-11-18] MEDS: Senna/Docusate Sodium 8.6/50 MG Tablet PO SCH ×3 (08:26→20:11)
--- NOTE | 2017-11-18 08:36 | ECG ---
Date Performed: 11/18/2017 Time Performed: 06:03:50 PTAGE: 89 years EKG: Sinus rhythm RIGHT BUNDLE BRANCH BLOCK POSSIBLE INFERIOR MYOCARDIAL INFARCTION, POSSIBLY ACUTE PREVIOUS TRACING : 11/17/2017 21.15 No significant change from previous tracing noted. DOCTOR: Jacobo Garcia Interpretating Date/Time 11/18/2017 08:36:20
--- NOTE | 2017-11-18 08:47 | ECG ---
Date Performed: 11/17/2017 Time Performed: 21:15:19 PTAGE: 89 years EKG: PROBABLE NORMAL Sinus rhythm RIGHT AXIS DEVIATION RIGHT BUNDLE BRANCH BLOCK POSSIBLE INFERIOR MYOCARDIAL INFARCTION NO PREVIOUS TRACING DOCTOR: Jacobo Garcia Interpretating Date/Time 11/18/2017 08:46:33
--- NOTE | 2017-11-18 08:47 | ECG ---
Date Performed: 11/17/2017 Time Performed: 21:38:15 PTAGE: 89 years EKG: SINUS TACHYCARDIA RIGHT BUNDLE BRANCH BLOCK POSSIBLE INFERIOR MYOCARDIAL INFARCTION NO PREVIOUS TRACING DOCTOR: Jacobo Garcia Interpretating Date/Time 11/18/2017 08:45:42
[2017-11-18] MEDS: Pantoprazole Inj 80 MG in Sodium Chlor 0.9% Inj 100 ML IV.CONT SCH (09:54)
[2017-11-18] MEDS: Pantoprazole Inj 40 MG Vial IV.PUSH SCH (12:41)
[2017-11-18] MEDS: Sod Chloride 0.9% Inj 1,000 ML IV.CONT SCH ×2 (12:41→22:50)
[2017-11-18 13:45] LABS: Bacteria,Urine Rare /hpf; Bilirubin,Urine Negative (Negative); Clarity,Urine Hazy (Clear); Color,Urine Yellow (Yellw/Straw); Glucose,Urine (UA) 50 mg/dL (Negative); Leukocyte Esterase,Urine Trace (Negative); Nitrite,Urine Negative (Negative); Specific Gravity,Urine 1.017 (1.002-1.035)
--- NOTE | 2017-11-18 18:42 | P.PNIM ---
Subjective Interval history: Patient initially brought into the hospital as a Bert Evans STEMI ALERT Patient actual name Kevin Tamez 1940 Patient has been evaluated and cleared per cardiology. His initially EKG shows right bundle branch block, inferior Q waves, nonspecific T-wave changes; all chronic findings and unchanged from previous EKG 08/31/16. Patient does however have diverticulitis and dehydration Patient reports he called ambulance services for abdominal pain. He reports that the abdominal pain is a severe cramping sensation in the lower portion of his abdomen and bilateral lower quadrants. He reports that the abdominal pain began 1-1/2 hours ago. He reports that over the last week and a half he is also had diarrhea intermittently. He denies noticing any blood in his stool or black or tarry stools. Upon ambulance services arrival the patient's blood pressure was noted to be in the 80s systolic. The patient had IV access obtained and was given normal saline at 900 mL bolus times with improvement in his blood pressure up to 106 systolic just prior to arrival. The patient reportedly has a history of hypertension, diabetes, coronary artery disease with a stent placed previously. At this time patient reports reports feeling, "alright." abd pain resolved RN reports 2-3 soft stools today with mucus and small amount of bright red blood present Physical Exam Vital signs: Vital Signs 11/17/17 21:15 11/17/17 21:19 11/17/17 21:27 Temperature Pulse Rate 96 H 110 H 109 H Respiratory Rate 20 20 18 Blood Pressure 146/79 H 158/88 H 157/89 H Pulse Oximetry 95 98 100 11/17/17 22:05 11/17/17 22:08 11/17/17 22:24 Temperature Pulse Rate 99 H Respiratory Rate 18 Blood Pressure 146/67 H Pulse Oximetry 100 100 100 11/17/17 23:00 11/18/17 00:00 11/18/17 00:53 Temperature Pulse Rate 106 H 106 H 98 H Respiratory Rate 18 18 18 Blood Pressure 150/68 H 187/79 H 170/71 H Pulse Oximetry 100 97 98 11/18/17 02:59 11/18/17 05:19 11/18/17 07:01 Temperature Pulse Rate 104 H 90 84 Respiratory Rate 18 20 Blood Pressure 169/79 H 178/81 H 146/70 H Pulse Oximetry 98 97 11/18/17 08:29 11/18/17 08:30 11/18/17 13:20 Temperature Pulse Rate 88 89 Respiratory Rate 17 16 Blood Pressure 162/79 H 179/82 H Pulse Oximetry 100 100 98 11/18/17 14:52 11/18/17 16:00 11/18/17 16:43 Temperature 98.2 F Pulse Rate 89 81 Respiratory Rate 20 18 Blood Pressure 169/81 H 169/88 H Pulse Oximetry 99 99 99 11/18/17 18:15 Temperature Pulse Rate 72 Respiratory Rate Blood Pressure Pulse Oximetry Intake & Output 11/17/17 11/18/17 11/18/17 18:59 06:59 18:59 Intake Total 2200 / 2200 1100 / 1100 Balance 2200 / 2200 1100 / 1100 Weight 83.461 kg Intake: IV 2200 / 2200 1100 / 1100 Protonix Inj 80 MG In NS Inj 100 / 100 100 ML @ 10 mls/hr IV.CONT CONT JOEL Rx#:[id number] NS Inj 1,000 ML @ 125 mls/hr IV 1000 / 1000 .CONT .Q8H JOEL Rx#:[id number] Zosyn 3.375 GM Premix 50 ML @ 100 / 100 100 mls/hr IV.SIG Q6H JOEL Rx#: [id number] NS Inj 1,000 ML @ Wide Open IV. 1999 / 1999 SIG BOLUS ONE Rx#:[id number] Flagyl 500 MG Inj 100 ML @ 100 100 / 100 mls/hr IV.SIG ONCE ONE Rx#: [id number] Other: # Urine Diapers 1 Results - Labs CBC & Chem 7: 11/19/17 05:59 11/19/17 05:59 Laboratory Results - last 24 hr 11/17/17 11/17/17 11/17/17 21:20 21:20 21:20 WBC RBC Hgb POC Hgb (Calc) Cancelled Hct POC Hct Cancelled MCV MCH MCHC RDW Plt Count MPV Neut % (Auto) Lymph % (Auto) [place] % (Auto) Eos % (Auto) Baso % (Auto) Neut # (Auto) Lymph # (Auto) [place] # (Auto) Eos # (Auto) Baso # (Auto) WBC Differential Differential Comment PT 11.8 H INR 1.2 APTT 23.5 L POC Sodium Cancelled Sodium POC Potassium Cancelled Potassium POC Chloride Cancelled Chloride Carbon Dioxide Anion Gap POC BUN Cancelled BUN Creatinine POC Creatinine Cancelled Estimated GFR POC Glucose Cancelled Random Glucose Lactic Acid Calcium Cancelled Prot Corrected Calcium Magnesium Cancelled Total Bilirubin AST ALT Alkaline Phosphatase Total Creatine Kinase Cancelled Troponin I Cancelled B-Natriuretic Peptide 160 H Total Protein Albumin Lipase Urine Color Urine Clarity Urine pH Ur Specific [place] Urine Protein Urine Glucose (UA) Urine Ketones Urine Occult Blood Urine Nitrate Urine Bilirubin Urine Urobilinogen Ur Leukocyte Esterase Urine RBC Urine WBC Urine Bacteria Micro UA Comment Urine Culture Comments Stl C.difficile Tox PCR St C. diff Tox Epid 027 Blood Type Antibody Screen 11/17/17 11/17/17 11/17/17 21:20 21:20 21:53 WBC 12.4 H RBC 4.39 L Hgb 13.1 POC Hgb (Calc) 12.6 L Hct 41.2 POC Hct 37.0 L MCV 93.9 MCH 29.9 MCHC 31.8 L RDW 14.4 Plt Count 162 MPV 9.6 Neut % (Auto) 82.6 H Lymph % (Auto) 8.5 L [place] % (Auto) 7.9 Eos % (Auto) 0.6 Baso % (Auto) 0.4 Neut # (Auto) 10.3 H Lymph # (Auto) 1.1 [place] # (Auto) 1.0 H Eos # (Auto) 0.1 Baso # (Auto) 0.0 WBC Differential . Differential Comment Auto diff final PT INR APTT POC Sodium 141 Sodium 142 POC Potassium 4.0 Potassium 4.2 POC Chloride 110 Chloride 112 H Carbon Dioxide 18.6 L Anion Gap 11 POC BUN 22 H BUN 21 H Creatinine 1.80 H POC Creatinine 1.6 H Estimated GFR 33 L POC Glucose 231 H Random Glucose 224 H Lactic Acid 3.5 H Calcium 7.6 L Prot Corrected Calcium Magnesium 1.7 Total Bilirubin 0.6 AST 18 ALT 16 Alkaline Phosphatase 84 Total Creatine Kinase 86 Troponin I 0.43 H B-Natriuretic Peptide Total Protein 5.9 L Albumin 3.1 L Lipase 71 L Urine Color Urine Clarity Urine pH Ur Specific [place] Urine Protein Urine Glucose (UA) Urine Ketones Urine Occult Blood Urine Nitrate Urine Bilirubin Urine Urobilinogen Ur Leukocyte Esterase Urine RBC Urine WBC Urine Bacteria Micro UA Comment Urine Culture Comments Stl C.difficile Tox PCR St C. diff Tox Epid 027 Blood Type Antibody Screen 11/17/17 11/17/17 11/18/17 22:27 23:03 00:35 WBC RBC Hgb POC Hgb (Calc) Hct POC Hct MCV MCH MCHC RDW Plt Count MPV Neut % (Auto) Lymph % (Auto) [place] % (Auto) Eos % (Auto) Baso % (Auto) Neut # (Auto) Lymph # (Auto) [place] # (Auto) Eos # (Auto) Baso # (Auto) WBC Differential Differential Comment PT INR APTT POC Sodium Sodium POC Potassium Potassium POC Chloride Chloride Carbon Dioxide Anion Gap POC BUN BUN Creatinine POC Creatinine Estimated GFR POC Glucose Random Glucose Lactic Acid 2.1 H Calcium Prot Corrected Calcium Magnesium Total Bilirubin AST ALT Alkaline Phosphatase Total Creatine Kinase Troponin I B-Natriuretic Peptide Total Protein Albumin Lipase Urine Color Urine Clarity Urine pH Ur Specific [place] Urine Protein Urine Glucose (UA) Urine Ketones Urine Occult Blood Urine Nitrate Urine Bilirubin Urine Urobilinogen Ur Leukocyte Esterase Urine RBC Urine WBC Urine Bacteria Micro UA Comment Urine Culture Comments Stl C.difficile Tox PCR Negative St C. diff Tox Epid 027 Negative Blood Type O Positive Antibody Screen Negative 11/18/17 11/18/17 11/18/17 05:14 05:14 13:00 WBC 12.1 H RBC 4.31 L Hgb 12.9 L POC Hgb (Calc) Hct 40.1 POC Hct MCV 93.0 MCH 30.0 MCHC 32.3 RDW 14.1 Plt Count 132 L MPV 9.3 Neut % (Auto) 84.6 H Lymph % (Auto) 4.3 L [place] % (Auto) 10.8 H Eos % (Auto) 0.1 Baso % (Auto) 0.2 Neut # (Auto) 10.2 H Lymph # (Auto) 0.5 L [place] # (Auto) 1.3 H Eos # (Auto) 0.0 Baso # (Auto) 0.0 WBC Differential . Differential Comment Auto diff final PT INR APTT POC Sodium Sodium 143 POC Potassium Potassium 4.8 POC Chloride Chloride 113 H Carbon Dioxide 22.6 Anion Gap 7 POC BUN BUN 21 H Creatinine 1.60 H POC Creatinine Estimated GFR 37 L POC Glucose Random Glucose 162 H Lactic Acid Calcium 7.4 L* Prot Corrected Calcium 8.0 L Magnesium Total Bilirubin 0.4 AST 21 ALT 18 Alkaline Phosphatase 81 Total Creatine Kinase Troponin I 0.49 H B-Natriuretic Peptide Total Protein 6.0 L Albumin 3.0 L Lipase Urine Color Yellow Urine Clarity Hazy H Urine pH 5.0 Ur Specific [place] 1.017 Urine Protein Negative Urine Glucose (UA) 50 Urine Ketones Negative Urine Occult Blood Negative Urine Nitrate Negative Urine Bilirubin Negative Urine Urobilinogen Less than 2 Ur Leukocyte Esterase Trace H Urine RBC 1 Urine WBC 2 Urine Bacteria Rare H Micro UA Comment Culture not ind Urine Culture Comments Culture not ind Stl C.difficile Tox PCR St C. diff Tox Epid 027 Blood Type Antibody Screen 11/18/17 16:09 WBC RBC Hgb POC Hgb (Calc) Hct POC Hct MCV MCH MCHC RDW Plt Count MPV Neut % (Auto) Lymph % (Auto) [place] % (Auto) Eos % (Auto) Baso % (Auto) Neut # (Auto) Lymph # (Auto) [place] # (Auto) Eos # (Auto) Baso # (Auto) WBC Differential Differential Comment PT INR APTT POC Sodium Sodium POC Potassium Potassium POC Chloride Chloride Carbon Dioxide Anion Gap POC BUN BUN Creatinine POC Creatinine Estimated GFR POC Glucose 132 H Random Glucose Lactic Acid Calcium Prot Corrected Calcium Magnesium Total Bilirubin AST ALT Alkaline Phosphatase Total Creatine Kinase Troponin I B-Natriuretic Peptide Total Protein Albumin Lipase Urine Color Urine Clarity Urine pH Ur Specific [place] Urine Protein Urine Glucose (UA) Urine Ketones Urine Occult Blood Urine Nitrate Urine Bilirubin Urine Urobilinogen Ur Leukocyte Esterase Urine RBC Urine WBC Urine Bacteria Micro UA Comment Urine Culture Comments Stl C.difficile Tox PCR St C. diff Tox Epid 027 Blood Type Antibody Screen Microbiology 11/17/17 21:45 Blood - Peripheral Aerobic Blood Culture - Preliminary No growth in 1 day 11/17/17 21:45 Blood - Peripheral Anaerobic Blood Culture - Preliminary No growth in 1 day 11/17/17 21:53 Blood - Peripheral Aerobic Blood Culture - Preliminary No growth in 1 day 11/17/17 21:53 Blood - Peripheral Anaerobic Blood Culture - Preliminary No growth in 1 day 11/17/17 22:27 Stool Enteric Pathogens (PCR) - Final No enteric pathogens detected by PCR (No Salmonella sp., Shigella sp., Campylobacter sp., Yersinia enterocolitica, Vibrio sp., Norovirus, or EHEC (Shiga Toxin 1 or Shiga Toxin 2) detected. 11/17/17 22:27 Stool Stool for WBCs - Final No WBC's seen - Imaging Impressions Chest X-Ray 11/17/17 00:00 CONCLUSION: No acute cardiopulmonary disease. Abdomen/Pelvis CT 11/17/17 22:10 CONCLUSION: 1. Apparent mild acute diverticulitis involving the sigmoid colon. 2. Focal infrarenal saccular abdominal aortic aneurysm measuring up to 4.1 x 4.1 cm. 3. Status post cholecystectomy. Assessment and Plan - Assessment (1) Diverticulitis Code(s): K57.92 - Diverticulitis of intestine, part unspecified, without perforation or abscess without bleeding Status: Acute Plan: Patient initially brought into the hospital as a Bert Evans STEMI ALERT Patient actual name Kevin Tamez 1940 Patient has been evaluated and cleared per cardiology. His initially EKG shows right bundle branch block, inferior Q waves, nonspecific T-wave changes; all chronic findings and unchanged from previous EKG 08/31/16. Patient does however have diverticulitis and dehydration Patient reports he called ambulance services for abdominal pain. He reports that the abdominal pain is a severe cramping sensation in the lower portion of his abdomen and bilateral lower quadrants. He reports that the abdominal pain began 1-1/2 hours ago. He reports that over the last week and a half he is also had diarrhea intermittently. He denies noticing any blood in his stool or black or tarry stools. Upon ambulance services arrival the patient's blood pressure was noted to be in the 80s systolic. The patient had IV access obtained and was given normal saline at 900 mL bolus times with improvement in his blood pressure up to 106 systolic just prior to arrival. The patient reportedly has a history of hypertension, diabetes, coronary artery disease with a stent placed previously, dementia, psychosis, hypothyroidism and BPH. Diverticulitis Patient reports he called ambulance services for abdominal pain. He reports that the abdominal pain is a severe cramping sensation in the lower portion of his abdomen and bilateral lower quadrants. He reports that the abdominal pain began 1-1/2 hours ago. He reports that over the last week and a half he is also had diarrhea intermittently. He denies noticing any blood in his stool or black or tarry stools. Abdomen/Pelvis CT 11/17/17 reviewed and reveals: 1. Apparent mild acute diverticulitis involving the sigmoid colon. 2. Focal infrarenal saccular abdominal aortic aneurysm measuring up to 4.1 x 4.1 cm. 3. Status post cholecystectomy. continue Zosyn Elevated troponin Patient initially brought into the hospital as a Bert Evans STEMI ALERT Patient actual name Kevin Tamez 1940 Patient has been evaluated and cleared per cardiology. His initially EKG shows right bundle branch block, inferior Q waves, nonspecific T-wave changes; all chronic findings and unchanged from previous EKG 08/31/16. initial troponin 0.43, 0.49 per cardiology likely demand related Dementia, psychosis resume home risperidone HTN resume home Lisinopril 10 mg PO daily and metoprolol 25mg PO BID BPH continue home Flomax Consult PT and case management (2) Elevated troponin Code(s): R74.8 - Abnormal levels of other serum enzymes Status: Acute - Plan Patient examined. Assessment and plan formulated with Chayo Joiner PA-C. I agree with the above.
[2017-11-18] MEDS: Metoprolol Tartrate 25 MG Tablet PO SCH (21:20)
[2017-11-18] MEDS: Cilostazol 50 MG Tablet PO SCH (21:20)
[2017-11-19] MEDS: Levothyroxine 100 MCG Tablet PO SCH (05:56)
[2017-11-19 06:24] LABS: Baso % (Auto) 0.5 % (0.0-2.0); Eos # (Auto) 0.4 th/mm3 (0.0-0.4); Eos % (Auto) 3.9 % (0.0-4.0); Hematocrit 38.2 % (39.0-51.0); Hemoglobin 12.7 gm/dL (13.0-17.0); Lymph # (Auto) 1.9 th/mm3 (1.0-4.8); Lymph % (Auto) 18.3 % (9.0-44.0); Mean Corpuscular HGB Conc 33.2 % (32.0-36.0); Mean Corpuscular Hemoglobin 30.4 pg (27.0-34.0); Mean Corpuscular Volume 91.5 fL (80.0-100.0); Mean Platelet Volume 9.2 fL (7.0-11.0); Mono # (Auto) 0.7 th/mm3 (0.0-0.9); Mono % (Auto) 7.1 % (0.0-8.0); Neut # (Auto) 7.1 th/mm3 (1.8-7.7); Neut % (Auto) 70.2 % (16.0-70.0); Platelet Count 132 th/mm3 (150-450); Red Blood Count 4.18 mil/mm3 (4.50-5.90); Red Cell Distribution Width 14.3 % (11.6-17.2); White Blood Count 10.1 th/mm3 (4.0-11.0)
[2017-11-19 06:39] LABS: Albumin 2.9 g/dL (3.4-5.0); Anion Gap 7 meq/L (5-15); Aspartate Aminotransferase 17 U/L (15-37); Blood Urea Nitrogen 14 mg/dL (7-18); Calcium 7.8 mg/dL (8.5-10.1); Carbon Dioxide 21.5 meq/L (21.0-32.0); Chloride 114 meq/L (98-107); Glomerular Filtration Rate 56 mL/min (>89); Glucose,Random 102 mg/dL (74-106); Sodium 142 meq/L (136-145)
[2017-11-19 06:41] LABS: Alanine Aminotransferase 15 U/L (12-78)
[2017-11-19 06:43] LABS: Alkaline Phosphatase 71 U/L (45-117)
[2017-11-19] MEDS: metroNIDAZOLE 500 MG Tablet PO SCH ×2 (08:40→16:39)
[2017-11-19] MEDS: Pantoprazole Inj 40 MG Vial IV.PUSH SCH (08:41)
[2017-11-19] MEDS: Senna/Docusate Sodium 8.6/50 MG Tablet PO SCH ×2 (08:41→22:32)
[2017-11-19] MEDS: Metoprolol Tartrate 25 MG Tablet PO SCH ×2 (08:41→22:30)
[2017-11-19] MEDS: Cilostazol 50 MG Tablet PO SCH ×2 (08:41→22:30)
[2017-11-19] MEDS: levoFLOXacin Liq 25 MG/ML 100 ML Bottle PO SCH (09:06)
--- NOTE | 2017-11-19 10:53 | P.DS ---
Date of admission: 11/17/17 23:45 Primary care physician: UNKNOWN Brief History from admission: The patient is a reportedly 77 year old male who presents to the [facility] emergency department with a history of being brought in as a STEMI alert by ambulance services after the patient was noted to have ST segment elevation in the inferior leads and depression in the lateral leads. The patient denied having any chest pain, chest pressure, or shortness of breath. The patient reports that he called ambulance services for abdominal pain. He reports that the abdominal pain is a severe cramping sensation in the lower portion of his abdomen and bilateral lower quadrants. He reports that the abdominal pain began 1-1/2 hours ago. He reports that over the last week and a half he is also had diarrhea intermittently. He denies noticing any blood in his stool or black or tarry stools. Upon ambulance services arrival the patient's blood pressure was noted to be in the 80s systolic. The patient had IV access obtained and was given normal saline at 900 mL bolus times with improvement in his blood pressure up to 106 systolic just prior to arrival. The patient had dusky coloration to his lips, however his O2 saturation was reportedly 96% on room air. The patient's blood sugar prior to arrival was reportedly 219. The patient reportedly has a history of hypertension, diabetes, coronary artery disease with a stent placed previously. He cannot recall the name of his primary care physician or spool sander at this time. The patient denies having any known recent fevers, cough, congestion, neck pain, vomiting, urinary symptoms, or neurologic symptoms. Patient does not recall any of his home medications and did call his sister who will retrieve the list in AM. According to patient his sister comes to his house and gives him his medications. Patient has slight elevation troponin and ekg on review may have chronic changes ,lab work suggests sepsis ,and CT abdomen suggests diverticulitis . Patient will start on antibiotics tonight with fluids. DS: Diagnosis - Discharge Diagnosis (1) Diverticulitis Status: Acute (2) Elevated troponin Status: Acute DS: Medications - Discharge Medications Prescriptions: levofloxacin [Levaquin] 500 mg PO DAILY #5 tab metronidazole 500 mg PO Q8H #15 tab DS: Summary Hospital Course: (1) Diverticulitis Code(s): K57.92 - Diverticulitis of intestine, part unspecified, without perforation or abscess without bleeding Status: Acute Plan: Patient initially brought into the hospital as a Bert Evans STEMI ALERT Patient actual name Kevin Tamez 1940 Patient has been evaluated and cleared per cardiology. His initially EKG shows right bundle branch block, inferior Q waves, nonspecific T-wave changes; all chronic findings and unchanged from previous EKG 08/31/16. Patient does however have diverticulitis and dehydration Patient reports he called ambulance services for abdominal pain. He reports that the abdominal pain is a severe cramping sensation in the lower portion of his abdomen and bilateral lower quadrants. He reports that the abdominal pain began 1-1/2 hours ago. He reports that over the last week and a half he is also had diarrhea intermittently. He denies noticing any blood in his stool or black or tarry stools. Upon ambulance services arrival the patient's blood pressure was noted to be in the 80s systolic. The patient had IV access obtained and was given normal saline at 900 mL bolus times with improvement in his blood pressure up to 106 systolic just prior to arrival. The patient reportedly has a history of hypertension, diabetes, coronary artery disease with a stent placed previously, dementia, psychosis, hypothyroidism and BPH. Diverticulitis Patient reports he called ambulance services for abdominal pain. He reports that the abdominal pain is a severe cramping sensation in the lower portion of his abdomen and bilateral lower quadrants. He reports that the abdominal pain began 1-1/2 hours ago. He reports that over the last week and a half he is also had diarrhea intermittently. He denies noticing any blood in his stool or black or tarry stools. Abdomen/Pelvis CT 11/17/17 reviewed and reveals: 1. Apparent mild acute diverticulitis involving the sigmoid colon. 2. Focal infrarenal saccular abdominal aortic aneurysm measuring up to 4.1 x 4.1 cm. 3. Status post cholecystectomy. - IV Zosyn - changed to PO levaquin & flagyl x 7d upon discharge - Pt with generalized weakness and unsteady gait - discharge to SNF - see discharge orders Elevated troponin Patient initially brought into the hospital as a Bert Evans STEMI ALERT Patient actual name Kevin Tamez 1940 Patient has been evaluated and cleared per cardiology. His initially EKG shows right bundle branch block, inferior Q waves, nonspecific T-wave changes; all chronic findings and unchanged from previous EKG 08/31/16. initial troponin 0.43, 0.49 per cardiology likely demand related Dementia, psychosis resume home risperidone HTN resume home Lisinopril 10 mg PO daily and metoprolol 25mg PO BID BPH continue home Flomax Consult PT and case management (2) Elevated troponin Code(s): R74.8 - Abnormal levels of other serum enzymes Status: Acute pt noted to have rectal bleeding cbc ordered gi consult ordered consult was cancelled pt denies abdominal pain, n/v/d - Time Spent with Patient Total time spent providing and/or coordinating discharge services: Greater than 30 minutes Exam Vital signs: Vital Signs 11/18/17 13:20 11/18/17 14:52 11/18/17 16:00 Temperature 98.2 F Pulse Rate 89 89 81 Respiratory Rate 16 20 18 Blood Pressure 179/82 H 169/81 H 169/88 H Pulse Oximetry 98 99 99 11/18/17 16:40 11/18/17 16:43 11/18/17 17:00 Temperature Pulse Rate 88 98 H Respiratory Rate Blood Pressure Pulse Oximetry 99 11/18/17 18:15 11/18/17 19:00 11/18/17 20:00 Temperature Pulse Rate 72 82 80 Respiratory Rate Blood Pressure Pulse Oximetry 11/18/17 21:30 11/18/17 22:00 11/18/17 23:00 Temperature 98.4 F Pulse Rate 81 84 71 Respiratory Rate 17 Blood Pressure 169/87 H Pulse Oximetry 97 11/18/17 23:36 11/19/17 00:00 11/19/17 01:00 Temperature 97.6 F Pulse Rate 70 69 68 Respiratory Rate 17 Blood Pressure 148/74 H Pulse Oximetry 97 11/19/17 02:00 11/19/17 03:00 11/19/17 03:45 Temperature 97.8 F Pulse Rate 68 63 62 Respiratory Rate 18 Blood Pressure 154/72 H Pulse Oximetry 97 11/19/17 04:00 11/19/17 05:00 11/19/17 06:00 Temperature Pulse Rate 62 68 72 Respiratory Rate Blood Pressure Pulse Oximetry 11/19/17 07:00 11/19/17 08:00 11/19/17 09:00 Temperature 98.2 F Pulse Rate 65 63 87 Respiratory Rate 18 Blood Pressure 166/73 H Pulse Oximetry 95 11/19/17 10:00 Temperature Pulse Rate 86 Respiratory Rate Blood Pressure Pulse Oximetry Intake & Output 11/18/17 11/19/17 11/19/17 18:59 06:59 18:59 Intake Total 1350 / 1350 700 / 700 Balance 1350 / 1350 700 / 700 Weight 83 kg Intake: IV 1350 / 1350 550 / 550 Protonix Inj 80 MG In NS Inj 100 / 100 100 ML @ 10 mls/hr IV.CONT CONT JOEL Rx#:[id number] NS Inj 1,000 ML @ 125 mls/hr IV 1000 / 1000 .CONT .Q8H JOEL Rx#:[id number] Zosyn 3.375 GM Premix 50 ML @ 50 / 50 50 / 50 100 mls/hr IV.SIG Q6H JOEL Rx#: [id number] Oral 150 / 150 Other: # Voids 3 # Urine Diapers 1 Date of Last Bowel Movement 11/18/17 11/18/17 Results Procedures completed during hospitalization: n/a Labs on day of discharge: Labs from last 24 hours 11/19/17 11/19/17 11/18/17 05:59 05:59 16:09 WBC 10.1 RBC 4.18 L Hgb 12.7 L Hct 38.2 L MCV 91.5 MCH 30.4 MCHC 33.2 RDW 14.3 Plt Count 132 L MPV 9.2 Neut % (Auto) 70.2 H Lymph % (Auto) 18.3 [place] % (Auto) 7.1 Eos % (Auto) 3.9 Baso % (Auto) 0.5 Neut # (Auto) 7.1 Lymph # (Auto) 1.9 [place] # (Auto) 0.7 Eos # (Auto) 0.4 Baso # (Auto) 0.0 WBC Differential . Differential Comment Auto diff final Sodium 142 Potassium 4.0 D Chloride 114 H Carbon Dioxide 21.5 Anion Gap 7 BUN 14 Creatinine 1.25 Estimated GFR 56 L POC Glucose 132 H Random Glucose 102 Calcium 7.8 L Total Bilirubin 0.6 AST 17 ALT 15 Alkaline Phosphatase 71 Total Protein 6.0 L Albumin 2.9 L Urine Color Urine Clarity Urine pH Ur Specific [place] Urine Protein Urine Glucose (UA) Urine Ketones Urine Occult Blood Urine Nitrate Urine Bilirubin Urine Urobilinogen Ur Leukocyte Esterase Urine RBC Urine WBC Urine Bacteria Micro UA Comment Urine Culture Comments 11/18/17 13:00 WBC RBC Hgb Hct MCV MCH MCHC RDW Plt Count MPV Neut % (Auto) Lymph % (Auto) [place] % (Auto) Eos % (Auto) Baso % (Auto) Neut # (Auto) Lymph # (Auto) [place] # (Auto) Eos # (Auto) Baso # (Auto) WBC Differential Differential Comment Sodium Potassium Chloride Carbon Dioxide Anion Gap BUN Creatinine Estimated GFR POC Glucose Random Glucose Calcium Total Bilirubin AST ALT Alkaline Phosphatase Total Protein Albumin Urine Color Yellow Urine Clarity Hazy H Urine pH 5.0 Ur Specific [place] 1.017 Urine Protein Negative Urine Glucose (UA) 50 Urine Ketones Negative Urine Occult Blood Negative Urine Nitrate Negative Urine Bilirubin Negative Urine Urobilinogen Less than 2 Ur Leukocyte Esterase Trace H Urine RBC 1 Urine WBC 2 Urine Bacteria Rare H Micro UA Comment Culture not ind Urine Culture Comments Culture not ind Preliminary micro results at discharge 11/17/17 21:45 Aerobic Blood Culture - Preliminary Blood - Peripheral No growth in 1 day Anaerobic Blood Culture - Preliminary No growth in 1 day 11/17/17 21:53 Aerobic Blood Culture - Preliminary Blood - Peripheral No growth in 1 day Anaerobic Blood Culture - Preliminary No growth in 1 day - Impressions ITS Impressions Chest X-Ray 11/17/17 00:00 CONCLUSION: No acute cardiopulmonary disease. Abdomen/Pelvis CT 11/17/17 22:10 CONCLUSION: 1. Apparent mild acute diverticulitis involving the sigmoid colon. 2. Focal infrarenal saccular abdominal aortic aneurysm measuring up to 4.1 x 4.1 cm. 3. Status post cholecystectomy. Discharge Plan - Discharge Disposition Patient Disposition: 03 Discharge to SNF - Discharge Condition Condition: Stable - Discharge Details Anticipated Discharge Date: 11/19/17 - Physicians Team Primary Care Provider: UNKNOWN, Attending Provider: Michael Dickson Other Providers: Tico Stevenson DO ; Richi Li MD
--- NOTE | 2017-11-19 11:12 | P.DCO ---
- Physical Therapy Order: Evaluate and treat, Improve ambulation, Strength and gait training - Home Health Nursing Order: Medical education, Signs/symptoms of disease process, Medication education-adverse effect - [employer] Order: To evaluate: Living conditions/environment, Support services Order: To provide: Long range planning, Community services - Certification I have seen patient Kevin Tamez on 11/19/17. My clinical findings support the need for the requested home health care services because: Limited mobility due to disease progression, Deconditioned with increased weakness, Medication compliance is questionable, Limited ability to care for self, Need for psychosocial assistance, High risk of falls I certify that my clinical findings support that this patient is homebound because: Impaired cognitive ability/safety, Unsteady gait/balance, Unsafe to leave home unassisted, Need for psychosocial assistance, Unable to use public transportation
[2017-11-20] MEDS: metroNIDAZOLE 500 MG Tablet PO SCH ×3 (02:05→16:09)
[2017-11-20] MEDS: Levothyroxine 100 MCG Tablet PO SCH (05:11)
[2017-11-20] MEDS: levoFLOXacin Liq 25 MG/ML 100 ML Bottle PO SCH (09:26)
[2017-11-20] MEDS: Cilostazol 50 MG Tablet PO SCH ×2 (09:26→21:00)
[2017-11-20] MEDS: Metoprolol Tartrate 25 MG Tablet PO SCH ×2 (09:27→21:00)
[2017-11-20] MEDS: Senna/Docusate Sodium 8.6/50 MG Tablet PO SCH ×2 (09:27→21:00)
[2017-11-20] MEDS: Pantoprazole Inj 40 MG Vial IV.PUSH SCH (09:27)
[2017-11-20 12:58] LABS: Baso % (Auto) 0.7 % (0.0-2.0); Eos # (Auto) 0.3 th/mm3 (0.0-0.4); Eos % (Auto) 5.4 % (0.0-4.0); Hematocrit 35.3 % (39.0-51.0); Hemoglobin 11.8 gm/dL (13.0-17.0); Lymph # (Auto) 1.2 th/mm3 (1.0-4.8); Lymph % (Auto) 19.8 % (9.0-44.0); Mean Corpuscular HGB Conc 33.4 % (32.0-36.0); Mean Corpuscular Hemoglobin 30.6 pg (27.0-34.0); Mean Corpuscular Volume 91.5 fL (80.0-100.0); Mean Platelet Volume 9.2 fL (7.0-11.0); Mono # (Auto) 0.5 th/mm3 (0.0-0.9); Mono % (Auto) 8.7 % (0.0-8.0); Neut # (Auto) 3.9 th/mm3 (1.8-7.7); Neut % (Auto) 65.4 % (16.0-70.0); Platelet Count 127 th/mm3 (150-450); Red Blood Count 3.85 mil/mm3 (4.50-5.90); Red Cell Distribution Width 13.9 % (11.6-17.2)
--- NOTE | 2017-11-20 13:36 | P.PNIM ---
Subjective Interval history: Nursing reports that pt is having rectal bleeding. BRB noted in pt's underwear. Pt denies abdominal pain, chest pain, or SOB. Physical Exam Vital signs: 11/20/17 09:00 11/20/17 10:00 11/20/17 11:00 Temperature 97.4 F L Pulse Rate 86 88 69 Respiratory Rate 18 Blood Pressure 122/67 Pulse Oximetry 98 Narrative: GENERAL: This is a well-nourished, well-developed patient, in no apparent distress. CARDIOVASCULAR: Regular rate and rhythm without murmurs, gallops, or rubs. RESPIRATORY: Clear to auscultation. Breath sounds equal bilaterally. No wheezes , rales, or rhonchi. GASTROINTESTINAL: Abdomen soft, non-tender, nondistended. Normal active bowel sounds MUSCULOSKELETAL: Extremities without clubbing, cyanosis, or edema. NEURO: Alert & Oriented x3, but confused at times Results - Labs CBC & Chem 7: 11/22/17 05:25 11/22/17 05:25 Microbiology 11/17/17 21:45 Blood - Peripheral Aerobic Blood Culture - Preliminary No growth in 3 days 11/17/17 21:45 Blood - Peripheral Anaerobic Blood Culture - Preliminary No growth in 3 days 11/17/17 21:53 Blood - Peripheral Aerobic Blood Culture - Preliminary No growth in 3 days 11/17/17 21:53 Blood - Peripheral Anaerobic Blood Culture - Preliminary No growth in 3 days Assessment and Plan - Assessment (1) Diverticulitis Code(s): K57.92 - Diverticulitis of intestine, part unspecified, without perforation or abscess without bleeding Status: Acute Plan: Patient initially brought into the hospital as a Bert Evans STEMI ALERT Patient actual name Kevin Tamez 1940 Patient has been evaluated and cleared per cardiology. His initially EKG shows right bundle branch block, inferior Q waves, nonspecific T-wave changes; all chronic findings and unchanged from previous EKG 08/31/16. Patient does however have diverticulitis and dehydration Patient reports he called ambulance services for abdominal pain. He reports that the abdominal pain is a severe cramping sensation in the lower portion of his abdomen and bilateral lower quadrants. He reports that the abdominal pain began 1-1/2 hours ago. He reports that over the last week and a half he is also had diarrhea intermittently. He denies noticing any blood in his stool or black or tarry stools. Upon ambulance services arrival the patient's blood pressure was noted to be in the 80s systolic. The patient had IV access obtained and was given normal saline at 900 mL bolus times with improvement in his blood pressure up to 106 systolic just prior to arrival. The patient reportedly has a history of hypertension, diabetes, coronary artery disease with a stent placed previously, dementia, psychosis, hypothyroidism and BPH. Diverticulitis Patient reports he called ambulance services for abdominal pain. He reports that the abdominal pain is a severe cramping sensation in the lower portion of his abdomen and bilateral lower quadrants. He reports that the abdominal pain began 1-1/2 hours ago. He reports that over the last week and a half he is also had diarrhea intermittently. He denies noticing any blood in his stool or black or tarry stools. Abdomen/Pelvis CT 11/17/17 reviewed and reveals: 1. Apparent mild acute diverticulitis involving the sigmoid colon. 2. Focal infrarenal saccular abdominal aortic aneurysm measuring up to 4.1 x 4.1 cm. 3. Status post cholecystectomy. - Zosyn, changed to PO ABX - continue levaquin & flagyl - Pt now with BRB per rectum - Hg dropped one point in 24 hours, - Hg 12.7 (11/19), 11.8 (11/20) - Request GI consultation - DVT prophylaxis with SCDs - supportive care Elevated troponin Patient initially brought into the hospital as a Bert Evans STEMI ALERT Patient actual name Kevin Tamez 1940 Patient has been evaluated and cleared per cardiology. His initially EKG shows right bundle branch block, inferior Q waves, nonspecific T-wave changes; all chronic findings and unchanged from previous EKG 08/31/16. initial troponin 0.43, 0.49 per cardiology likely demand related Dementia, psychosis resume home risperidone HTN resume home Lisinopril 10 mg PO daily and metoprolol 25mg PO BID BPH continue home Flomax Consult PT and case management (2) Generalized weakness Code(s): R53.1 - Weakness Status: Acute (3) Gait abnormality Code(s): R26.9 - Unspecified abnormalities of gait and mobility Status: Acute (4) Elevated troponin Code(s): R74.8 - Abnormal levels of other serum enzymes Status: Acute - Plan Patient examined. Assessment and plan formulated with Chayo Joiner PA-C. I agree with the above.
[2017-11-20] MEDS ORDERED: PEG 3350/E-Lyte Soln 4000 ML Bottle PO ONE (22:00)
[2017-11-21] MEDS: metroNIDAZOLE 500 MG Tablet PO SCH ×3 (00:12→17:09)
[2017-11-21] MEDS: Levothyroxine 100 MCG Tablet PO SCH (06:10)
[2017-11-21] MEDS: Pantoprazole Inj 40 MG Vial IV.PUSH SCH (09:15)
[2017-11-21] MEDS: levoFLOXacin Liq 25 MG/ML 100 ML Bottle PO SCH (09:15)
[2017-11-21] MEDS: Cilostazol 50 MG Tablet PO SCH ×2 (09:16→21:41)
[2017-11-21] MEDS: Metoprolol Tartrate 25 MG Tablet PO SCH ×2 (09:16→21:41)
[2017-11-21] MEDS: Senna/Docusate Sodium 8.6/50 MG Tablet PO SCH ×2 (09:16→21:40)
--- NOTE | 2017-11-21 12:25 | P.PNIM ---
Subjective Interval history: follow up: diverticulitis and rectal bleed Patient offers no new concerns/complaints Physical Exam Vital signs: Vital Signs 11/20/17 13:00 11/20/17 14:00 11/20/17 15:00 Temperature 98.1 F Pulse Rate 60 63 65 Respiratory Rate 18 Blood Pressure 138/71 Pulse Oximetry 96 11/20/17 16:00 11/20/17 16:55 11/20/17 17:00 Temperature Pulse Rate 64 90 Respiratory Rate Blood Pressure Pulse Oximetry 96 11/20/17 18:00 11/20/17 19:00 11/20/17 19:46 Temperature 98.1 F Pulse Rate 75 77 76 Respiratory Rate 18 Blood Pressure 146/72 H Pulse Oximetry 96 11/20/17 20:00 11/20/17 20:13 11/20/17 21:00 Temperature Pulse Rate 72 62 Respiratory Rate Blood Pressure Pulse Oximetry 98 11/20/17 22:00 11/20/17 23:00 11/21/17 00:00 Temperature 97.8 F Pulse Rate 78 70 76 Respiratory Rate 18 Blood Pressure 175/97 H Pulse Oximetry 97 11/21/17 01:00 11/21/17 02:00 11/21/17 03:00 Temperature Pulse Rate 66 63 61 Respiratory Rate Blood Pressure Pulse Oximetry 11/21/17 03:09 11/21/17 04:00 11/21/17 05:00 Temperature 98.2 F Pulse Rate 63 60 61 Respiratory Rate 17 Blood Pressure 141/72 H Pulse Oximetry 98 11/21/17 06:27 11/21/17 07:00 11/21/17 08:00 Temperature 97.9 F Pulse Rate 67 67 62 Respiratory Rate 18 Blood Pressure 154/80 H Pulse Oximetry 97 11/21/17 08:48 11/21/17 09:00 11/21/17 10:00 Temperature Pulse Rate 66 84 Respiratory Rate Blood Pressure Pulse Oximetry 96 11/21/17 11:00 Temperature 97.4 F L Pulse Rate 73 Respiratory Rate 18 Blood Pressure 167/87 H Pulse Oximetry 97 Intake & Output 11/20/17 11/21/17 11/21/17 18:59 06:59 18:59 Intake Total 920 / 920 200 / 200 Output Total 1100 / 1100 550 / 550 Balance -180 / -180 -350 / -350 Weight 83.5 kg Intake: Oral 920 / 920 200 / 200 Output: Urine 1100 / 1100 550 / 550 Other: Date of Last Bowel Movement 11/18/17 11/20/17 11/21/17 # Bowel Movements 2 # Incontinent Bowel Movements 1 Narrative: GENERAL: This is a well-nourished, well-developed patient, in no apparent distress. CARDIOVASCULAR: Regular rate and rhythm RESPIRATORY: Clear to auscultation. Breath sounds equal bilaterally. GASTROINTESTINAL: Abdomen soft, non-tender, nondistended. Normal active bowel sounds MUSCULOSKELETAL: Extremities without clubbing, cyanosis, or edema. NEURO: Alert & Oriented x3, but confused at times Results - Labs CBC & Chem 7: 11/22/17 05:25 11/22/17 05:25 Laboratory Results - last 24 hr 11/20/17 12:30 WBC 6.0 RBC 3.85 L Hgb 11.8 L Hct 35.3 L MCV 91.5 MCH 30.6 MCHC 33.4 RDW 13.9 Plt Count 127 L MPV 9.2 Neut % (Auto) 65.4 Lymph % (Auto) 19.8 [place] % (Auto) 8.7 H Eos % (Auto) 5.4 H Baso % (Auto) 0.7 Neut # (Auto) 3.9 Lymph # (Auto) 1.2 [place] # (Auto) 0.5 Eos # (Auto) 0.3 Baso # (Auto) 0.0 WBC Differential . Differential Comment Auto diff final Microbiology 11/17/17 21:45 Blood - Peripheral Aerobic Blood Culture - Preliminary No growth in 4 days 11/17/17 21:45 Blood - Peripheral Anaerobic Blood Culture - Preliminary No growth in 4 days 11/17/17 21:53 Blood - Peripheral Aerobic Blood Culture - Preliminary No growth in 4 days 11/17/17 21:53 Blood - Peripheral Anaerobic Blood Culture - Preliminary No growth in 4 days Assessment and Plan - Assessment (1) Diverticulitis Code(s): K57.92 - Diverticulitis of intestine, part unspecified, without perforation or abscess without bleeding Status: Acute Plan: Patient initially brought into the hospital as a Bert Evans STEMI ALERT Patient actual name Kevin Tamez 1940 Patient has been evaluated and cleared per cardiology. His initially EKG shows right bundle branch block, inferior Q waves, nonspecific T-wave changes; all chronic findings and unchanged from previous EKG 08/31/16. Patient does however have diverticulitis and dehydration Patient reports he called ambulance services for abdominal pain. He reports that the abdominal pain is a severe cramping sensation in the lower portion of his abdomen and bilateral lower quadrants. He reports that the abdominal pain began 1-1/2 hours ago. He reports that over the last week and a half he is also had diarrhea intermittently. He denies noticing any blood in his stool or black or tarry stools. Upon ambulance services arrival the patient's blood pressure was noted to be in the 80s systolic. The patient had IV access obtained and was given normal saline at 900 mL bolus times with improvement in his blood pressure up to 106 systolic just prior to arrival. The patient reportedly has a history of hypertension, diabetes, coronary artery disease with a stent placed previously, dementia, psychosis, hypothyroidism and BPH. Diverticulitis Patient reports he called ambulance services for abdominal pain. He reports that the abdominal pain is a severe cramping sensation in the lower portion of his abdomen and bilateral lower quadrants. He reports that the abdominal pain began 1-1/2 hours ago. He reports that over the last week and a half he is also had diarrhea intermittently. He denies noticing any blood in his stool or black or tarry stools. Abdomen/Pelvis CT 11/17/17 reviewed and reveals: 1. Apparent mild acute diverticulitis involving the sigmoid colon. 2. Focal infrarenal saccular abdominal aortic aneurysm measuring up to 4.1 x 4.1 cm. 3. Status post cholecystectomy. - Zosyn, changed to PO ABX - continue levaquin & flagyl - Pt now with BRB per rectum - Hg dropped one point in 24 hours, - Hg 12.7 (11/19), 11.8 (11/20) - Request GI consultation - DVT prophylaxis with SCDs - supportive care Elevated troponin Patient initially brought into the hospital as a Bert Evans STEMI ALERT Patient actual name Kevin Tamez 1940 Patient has been evaluated and cleared per cardiology. His initially EKG shows right bundle branch block, inferior Q waves, nonspecific T-wave changes; all chronic findings and unchanged from previous EKG 08/31/16. initial troponin 0.43, 0.49 per cardiology likely demand related Dementia, psychosis resume home risperidone HTN resume home Lisinopril 10 mg PO daily and metoprolol 25mg PO BID BPH continue home Flomax Rectal bleeding hgb 12.7 (11/19) -> 11.8 (11/20) GI consulted, had planned for colonoscopy (11/21) but patient refused prep the night prior - Pt's sister updated by phone while at the pt's bedside (11/21) - pt to undergo colonoscopy/EGD later today (11/22) - anticipate d/c to SNF 11/23/17 Consult PT and case management (2) Generalized weakness Code(s): R53.1 - Weakness Status: Acute (3) Gait abnormality Code(s): R26.9 - Unspecified abnormalities of gait and mobility Status: Acute (4) Elevated troponin Code(s): R74.8 - Abnormal levels of other serum enzymes Status: Acute - Attending Attestation Patient examined. Assessment and plan formulated with Chayo Joiner PA-C. I agree with the above.
--- NOTE | 2017-11-21 13:49 | P.CONGI ---
History of Present Illness Consult date: 11/20/17 Consult reason: Bright red rectal bleeding, diverticulitis Chief complaint: Diverticulitis, Sepsis, Elevated Troponin History of Present Illness: This is a 77-year-old male who was initially admitted to the hospital has a STEMI. On the initial notes he also noted some lower abdominal pain and cramping with some diarrhea over the past few days. Initial cardiology workup was done and patient was cleared per cardiology for further GI testing. Abdominal CT done 11/17/2017 did show diverticulitis of the sigmoid colon. Currently patient is still noting some dark red blood over the past 24 hours, but states he is now attempting to drink his colonoscopy preop and has not noted any more blood today. Currently patient denies any nausea or vomiting, or constipation. Gastroenterology consult for bright red rectal bleeding GI bleed. Patient is awake answering simple questions but is a fair and sometimes poor historian most of the information is being gathered from the record patient states previous colonoscopy at least 20 years ago and no history of EGD. There is no family members present. Current labs show hemoglobin initially at 13.1 now 11.8, PT/INR 1.2, bilirubin and LFTs normal range <Gloria Cortes - Last Filed: 11/21/17 15:46> Review of Systems All other systems reviewed negative except as stated in HPI <Gloria Cortes - Last Filed: 11/21/17 15:46> PMFSH - History History Provided By: Patient - Medical / Surgical Hx Neg / Unobtainable Medical Problems Denied: Unable to Obtain - Medical History Medical History: Medical History (Last Reviewed 11/20/17 @ 09:12 by Fiona Walsh) Diabetes HTN (hypertension) - Tobacco History Tobacco Use In Past 30 Days: No Smoking Status: Never smoker - Alcohol History How Often Do You Have a Drink Containing Alcohol: Never - Substance Use History Substance History: No History of Abuse - Travel History Recent Travel in the [place] Within the Last 8 Weeks: No Recent Travel Out of the Country Within the Last 8 Weeks: No - Immunization History Tetanus Immunization: Unsure Hx Influenza Vaccine This Season: No <Gloria Cortes - Last Filed: 11/21/17 15:46> - Medical History Medical History: Medical History (Last Reviewed 11/20/17 @ 09:12 by Fiona Walsh) Diabetes HTN (hypertension) <Richi Li - Last Filed: 11/22/17 20:30> Medications and Allergies Active Medications: Active Medications Al Hydroxide/Mg Hydroxide (Milk Of Magnesia Liq) 30 ml PO Q12H PRN PRN Reason: Mild Constipation Bisacodyl (Dulcolax Supp) 10 mg RECTAL DAILY PRN PRN Reason: SEVERE CONSITIPATION Cilostazol (Pletal) 50 mg PO BID [facility] Last Admin: 11/21/17 09:16 Dose: 50 mg Lactulose (Lactulose Liq) 30 ml PO DAILY PRN PRN Reason: SEVERE CONSITIPATION Levofloxacin (Levaquin) 500 mg PO DAILY [facility] Last Admin: 11/21/17 09:15 Dose: 500 mg Levothyroxine Sodium (Synthroid) 100 mcg PO DAILY@0600 [facility] Last Admin: 11/21/17 06:10 Dose: 100 mcg Magnesium Citrate (Citroma Liq) 300 ml PO ONCE ONE Stop: 11/21/17 16:01 Metoprolol Tartrate (Lopressor) 25 mg PO BID [facility] Last Admin: 11/21/17 09:16 Dose: 25 mg Metronidazole (Flagyl) 500 mg PO Q8H [facility] Last Admin: 11/21/17 09:15 Dose: 500 mg Ondansetron HCl (Zofran Inj) 4 mg IV.PUSH Q6H PRN PRN Reason: NAUSEA OR VOMITING Pantoprazole Sodium (Protonix Inj) 40 mg IV.PUSH DAILY [facility] Last Admin: 11/21/17 09:15 Dose: 40 mg Risperidone (Risperdal) 2 mg PO DAILY [facility] Last Admin: 11/21/17 09:15 Dose: 2 mg Senna/Docusate Sodium (Rena-Colace) 1 tab PO BID [facility] Last Admin: 11/21/17 09:16 Dose: 1 tab Sennosides (Senokot) 17.2 mg PO Q12H PRN PRN Reason: Moderate Constipation Sodium Chloride (Ns Flush) 2 ml IV.FLUSH PRN PRN PRN Reason: FLUSH AFTER USING IV ACCESS Tamsulosin HCl (Flomax) 0.4 mg PO DAILY [facility] Last Admin: 11/21/17 09:15 Dose: 0.4 mg Temazepam (Restoril) 15 mg PO HS PRN PRN Reason: INSOMNIA <Gloria Cortes - Last Filed: 11/21/17 15:46> <Richi Li - Last Filed: 11/22/17 20:30> Allergies Allergy/AdvReac Type Severity Reaction Status Date / Time No Known Allergies Allergy Verified 11/17/17 21:15 Home Medications Medication Instructions Recorded Confirmed Type aspirin [Aspirin Low Dose] 81 mg PO DAILY 11/18/17 11/18/17 History cilostazol 50 mg PO BID 11/18/17 11/18/17 History levothyroxine 100 mcg PO DAILY 11/18/17 11/18/17 History lisinopril 10 mg PO DAILY 11/18/17 11/18/17 History metoprolol tartrate 25 mg PO BID 11/18/17 11/18/17 History risperidone 2 mg PO DAILY 11/18/17 11/18/17 History tamsulosin 0.4 mg PO DAILY 11/18/17 11/18/17 History Exam Vital signs: Vital Signs 11/20/17 14:00 11/20/17 15:00 11/20/17 16:00 Temperature 98.1 F Pulse Rate 63 65 64 Respiratory Rate 18 Blood Pressure 138/71 Pulse Oximetry 96 11/20/17 16:55 11/20/17 17:00 11/20/17 18:00 Temperature Pulse Rate 90 75 Respiratory Rate Blood Pressure Pulse Oximetry 96 11/20/17 19:00 11/20/17 19:46 11/20/17 20:00 Temperature 98.1 F Pulse Rate 77 76 72 Respiratory Rate 18 Blood Pressure 146/72 H Pulse Oximetry 96 11/20/17 20:13 11/20/17 21:00 11/20/17 22:00 Temperature Pulse Rate 62 78 Respiratory Rate Blood Pressure Pulse Oximetry 98 11/20/17 23:00 11/21/17 00:00 11/21/17 01:00 Temperature 97.8 F Pulse Rate 70 76 66 Respiratory Rate 18 Blood Pressure 175/97 H Pulse Oximetry 97 11/21/17 02:00 11/21/17 03:00 11/21/17 03:09 Temperature 98.2 F Pulse Rate 63 61 63 Respiratory Rate 17 Blood Pressure 141/72 H Pulse Oximetry 98 11/21/17 04:00 11/21/17 05:00 11/21/17 06:27 Temperature Pulse Rate 60 61 67 Respiratory Rate Blood Pressure Pulse Oximetry 08/18/18 07:00 11/21/17 08:00 11/21/17 08:48 Temperature 97.9 F Pulse Rate 67 62 Respiratory Rate 18 Blood Pressure 154/80 H Pulse Oximetry 97 96 11/21/17 09:00 11/21/17 10:00 11/21/17 11:00 Temperature 97.4 F L Pulse Rate 66 84 75 Respiratory Rate 18 Blood Pressure 167/87 H Pulse Oximetry 97 11/21/17 13:00 Temperature Pulse Rate 87 Respiratory Rate Blood Pressure Pulse Oximetry Intake & Output 11/20/17 11/21/17 11/21/17 18:59 06:59 18:59 Intake Total 920 / 920 200 / 200 Output Total 1100 / 1100 550 / 550 Balance -180 / -180 -350 / -350 Weight 83.5 kg Intake: Oral 920 / 920 200 / 200 Output: Urine 1100 / 1100 550 / 550 Other: Date of Last Bowel Movement 11/18/17 11/20/17 11/21/17 # Bowel Movements 2 # Incontinent Bowel Movements 1 - Constitutional no acute distress, obese - Routine HEENT Exam Head: Present: normocephalic ENT: Present: mucous membranes moist - Routine Neck Exam Present: supple - Routine Respiratory Exam Present: accessory muscle use (No shortness of breath no wheezing no rhonchi) - Routine Cardiovascular Exam Present: S1, S2 - Routine Abdominal Exam Present: soft (Round, bowel sounds active, lower abdominal cramping minimal now) <Gloria Cortes - Last Filed: 11/21/17 15:46> Vital signs: Vital Signs 11/21/17 21:00 11/21/17 22:00 11/21/17 23:00 Temperature Pulse Rate 68 66 75 Respiratory Rate Blood Pressure Pulse Oximetry 11/22/17 00:00 11/22/17 01:00 11/22/17 02:00 Temperature Pulse Rate 76 64 62 Respiratory Rate Blood Pressure Pulse Oximetry 11/22/17 03:00 11/22/17 04:00 11/22/17 05:00 Temperature 98.4 F Pulse Rate 63 60 64 Respiratory Rate 18 Blood Pressure 164/66 H Pulse Oximetry 97 11/22/17 06:00 11/22/17 07:00 11/22/17 08:00 Temperature 98.5 F Pulse Rate 62 76 62 Respiratory Rate 20 Blood Pressure 175/81 H Pulse Oximetry 95 95 11/22/17 10:00 11/22/17 11:00 Temperature 98.6 F Pulse Rate 66 70 Respiratory Rate 20 Blood Pressure 150/82 H Pulse Oximetry 98 Intake & Output 11/22/17 11/22/17 11/23/17 06:59 18:59 06:59 Intake Total 100 / 100 Output Total 450 / 450 Balance -450 / -450 100 / 100 Weight 84.5 kg Intake: Anesthesia Amount 100 / 100 Output: Urine 450 / 450 Other: Date of Last Bowel Movement 11/21/17 # Bowel Movements 6 <Richi Li - Last Filed: 11/22/17 20:30> Results - Labs CBC & Chem 7: 11/20/17 12:30 11/19/17 05:59 <Gloria Cortes - Last Filed: 11/21/17 15:46> - Labs CBC & Chem 7: 11/22/17 05:25 11/22/17 05:25 Labs: Laboratory Results - last 24 hr 11/22/17 11/22/17 11/22/17 05:25 05:25 07:47 WBC 4.7 RBC 3.82 L Hgb 11.7 L Hct 34.8 L MCV 91.0 MCH 30.7 MCHC 33.7 RDW 13.8 Plt Count 152 MPV 9.0 Neut % (Auto) 53.1 Lymph % (Auto) 30.7 [place] % (Auto) 9.2 H Eos % (Auto) 6.2 H Baso % (Auto) 0.8 Neut # (Auto) 2.5 Lymph # (Auto) 1.5 [place] # (Auto) 0.4 Eos # (Auto) 0.3 Baso # (Auto) 0.0 WBC Differential . Differential Comment Auto diff final Sodium 142 Potassium 3.7 Chloride 108 H Carbon Dioxide 25.4 Anion Gap 9 BUN 8 Creatinine 1.07 Estimated GFR 67 L POC Glucose 96 Random Glucose 99 Calcium 7.6 L <Richi Li - Last Filed: 11/22/17 20:30> Assessment and Plan (1) Diverticulitis Status: Acute Code(s): K57.92 - Diverticulitis of intestine, part unspecified , without perforation or abscess without bleeding (2) Generalized weakness Status: Acute Code(s): R53.1 - Weakness - Plan Lower abdominal pain and cramping, symptoms performed #3, diverticulitis and #2 lower GI bleed. Still having some rectal bleeding on 11/20/2017. Planned for EGD colonoscopy, but refused to complete bowel prep. C. difficile negative checked on 11/17/2017 Bright red rectal bleeding, could be diverticulitis, hemorrhoid lower GI bleed Diverticulitis, seen on CT scan on admission 77-year-old male, initially admitted on 11/17/2017, lower abdominal cramping and abdominal pain, diarrhea and STEMI. Patient is a poor historian. Numb symptoms for several days which included some bright red rectal bleeding. No current nausea or vomiting dyspepsia or dysphasia CT scan on 11/17 showed diverticulitis of the sigmoid colon. Patient currently being managed on Levaquin, Flagyl, and Protonix. Gastroenterology consult for patient's GI bleeding. Patient was initially set up for EGD/colonoscopy today but did not complete his prep. Staff is working with him to simple mag citrate early a.m. on 11/21/2017 also added mag citrate for this p.m. Plan Diet clear liquids today GoLYTELY prep N.p.o. at midnight Monitor labs with special attention to hemoglobin Further recommendations to follow Patient was seen per Dr. Li, note was written on his behalf <Gloria Cortes - Last Filed: 11/21/17 15:46> (1) Diverticulitis Status: Acute Code(s): K57.92 - Diverticulitis of intestine, part unspecified , without perforation or abscess without bleeding (2) Generalized weakness Status: Acute Code(s): R53.1 - Weakness - Plan Patient was seen and examined, agree with above note, patient has possible colitis, rectal bleeding, less likely to be diverticulitis but he is on antibiotic will consider doing upper endoscopy and colonoscopy for the bleeding <Richi Li - Last Filed: 11/22/17 20:30>
--- NOTE | 2017-11-21 15:46 | P.PNGI ---
Subjective Interval history: Patient currently states bright red rectal bleeding has subsided today Staff currently has patient sipping on GoLYTELY prep Initially EGD colonoscopy scheduled for today but will be rescheduled for a.m. since patient did not consume prep. No current nausea vomiting dyspepsia or dysphasia Physical Exam Vital signs: Vital Signs 11/20/17 16:00 11/20/17 16:55 11/20/17 17:00 Temperature Pulse Rate 64 90 Respiratory Rate Blood Pressure Pulse Oximetry 96 11/20/17 18:00 11/20/17 19:00 11/20/17 19:46 Temperature 98.1 F Pulse Rate 75 77 76 Respiratory Rate 18 Blood Pressure 146/72 H Pulse Oximetry 96 11/20/17 20:00 11/20/17 20:13 11/20/17 21:00 Temperature Pulse Rate 72 62 Respiratory Rate Blood Pressure Pulse Oximetry 98 11/20/17 22:00 11/20/17 23:00 11/21/17 00:00 Temperature 97.8 F Pulse Rate 78 70 76 Respiratory Rate 18 Blood Pressure 175/97 H Pulse Oximetry 97 11/21/17 01:00 11/21/17 02:00 11/21/17 03:00 Temperature Pulse Rate 66 63 61 Respiratory Rate Blood Pressure Pulse Oximetry 11/21/17 03:09 11/21/17 04:00 11/21/17 05:00 Temperature 98.2 F Pulse Rate 63 60 61 Respiratory Rate 17 Blood Pressure 141/72 H Pulse Oximetry 98 11/21/17 06:27 11/21/17 07:00 11/21/17 08:00 Temperature 97.9 F Pulse Rate 67 67 62 Respiratory Rate 18 Blood Pressure 154/80 H Pulse Oximetry 97 11/21/17 08:48 11/21/17 09:00 11/21/17 10:00 Temperature Pulse Rate 66 84 Respiratory Rate Blood Pressure Pulse Oximetry 96 11/21/17 11:00 11/21/17 13:00 11/21/17 14:00 Temperature 97.4 F L Pulse Rate 75 87 80 Respiratory Rate 18 Blood Pressure 167/87 H Pulse Oximetry 97 11/21/17 15:00 Temperature 97.7 F Pulse Rate 100 H Respiratory Rate 18 Blood Pressure 154/100 H Pulse Oximetry 99 Intake & Output 11/20/17 11/21/17 11/21/17 18:59 06:59 18:59 Intake Total 920 / 920 200 / 200 Output Total 1100 / 1100 550 / 550 Balance -180 / -180 -350 / -350 Weight 83.5 kg Intake: Oral 920 / 920 200 / 200 Output: Urine 1100 / 1100 550 / 550 Other: Date of Last Bowel Movement 11/18/17 11/20/17 11/21/17 # Bowel Movements 2 # Incontinent Bowel Movements 1 - Constitutional no acute distress - Routine HEENT Exam Head: Present: normocephalic ENT: Present: mucous membranes moist - Routine Neck Exam Present: supple - Routine Respiratory Exam Present: accessory muscle use (No shortness of breath or audible wheezing noted) - Routine Cardiovascular Exam Present: S1, S2 - Routine Abdominal Exam Present: soft (Round, no abdominal pain to light palpation) - Routine Neurological Exam Present: alert (Awake answer simple question) Results - Labs CBC & Chem 7: 11/20/17 12:30 11/19/17 05:59 Microbiology 11/17/17 21:45 Blood - Peripheral Aerobic Blood Culture - Preliminary No growth in 4 days 11/17/17 21:45 Blood - Peripheral Anaerobic Blood Culture - Preliminary No growth in 4 days 11/17/17 21:53 Blood - Peripheral Aerobic Blood Culture - Preliminary No growth in 4 days 11/17/17 21:53 Blood - Peripheral Anaerobic Blood Culture - Preliminary No growth in 4 days Assessment and Plan (1) Diverticulitis Status: Acute Code(s): K57.92 - Diverticulitis of intestine, part unspecified , without perforation or abscess without bleeding (2) Generalized weakness Status: Acute Code(s): R53.1 - Weakness - Plan Lower abdominal pain and cramping, symptoms performed #3, diverticulitis and #2 lower GI bleed. Still having some rectal bleeding on 11/20/2017. Planned for EGD colonoscopy, but refused to complete bowel prep. Bright red rectal bleeding, could be diverticulitis, hemorrhoid lower GI bleed Diverticulitis, seen on CT scan on admission 77-year-old male, initially admitted on 11/17/2017, lower abdominal cramping and abdominal pain, diarrhea and STEMI. Patient is a poor historian. Numb symptoms for several days which included some bright red rectal bleeding. No current nausea or vomiting dyspepsia or dysphasia CT scan on 11/17 showed diverticulitis of the sigmoid colon. Patient currently being managed on Levaquin, Flagyl, and Protonix. Gastroenterology consult for patient's GI bleeding. Patient was initially set up for EGD/colonoscopy today but did not complete his prep. Staff is working with him to simple mag citrate early a.m. on 11/21/2017 also added mag citrate for this p.m. 11/21/2017 patient was evaluated and encouraged to drink his prep so he is rectal bleeding could be evaluated. Bright red rectal bleeding could be related to hemorrhoids, diverticular. Added mag citrate for this p.m. to also assist with his prep. Patient maintained on clear liquids today will be n.p.o. from midnight understands test will be done tomorrow. Current hemoglobin 11.8. No dyspepsia Plan Diet clear liquids Mag citrate prep this p.m. N.p.o. at midnight Plan colonoscopy in a.m. Further recommendations to follow after further testing Patient was seen per Dr. Murphy, note was written on his behalf
[2017-11-21] MEDS ORDERED: Magnesium Citrate Liq 300 ML Bottle PO ONE (16:00)
[2017-11-22] MEDS: metroNIDAZOLE 500 MG Tablet PO SCH ×2 (01:23→08:08)
[2017-11-22] MEDS: Levothyroxine 100 MCG Tablet PO SCH (06:04)
[2017-11-22 06:05] LABS: Baso % (Auto) 0.8 % (0.0-2.0); Eos # (Auto) 0.3 th/mm3 (0.0-0.4); Eos % (Auto) 6.2 % (0.0-4.0); Hematocrit 34.8 % (39.0-51.0); Hemoglobin 11.7 gm/dL (13.0-17.0); Lymph # (Auto) 1.5 th/mm3 (1.0-4.8); Lymph % (Auto) 30.7 % (9.0-44.0); Mean Corpuscular HGB Conc 33.7 % (32.0-36.0); Mean Corpuscular Hemoglobin 30.7 pg (27.0-34.0); Mono # (Auto) 0.4 th/mm3 (0.0-0.9); Mono % (Auto) 9.2 % (0.0-8.0); Neut # (Auto) 2.5 th/mm3 (1.8-7.7); Neut % (Auto) 53.1 % (16.0-70.0); Platelet Count 152 th/mm3 (150-450); Red Blood Count 3.82 mil/mm3 (4.50-5.90); Red Cell Distribution Width 13.8 % (11.6-17.2); White Blood Count 4.7 th/mm3 (4.0-11.0)
[2017-11-22 06:09] LABS: Calcium 7.6 mg/dL (8.5-10.1); Carbon Dioxide 25.4 meq/L (21.0-32.0); Potassium 3.7 meq/L (3.5-5.1)
[2017-11-22] MEDS: Metoprolol Tartrate 25 MG Tablet PO SCH (08:08)
[2017-11-22] MEDS: Pantoprazole Inj 40 MG Vial IV.PUSH SCH (08:09)
[2017-11-22] MEDS: levoFLOXacin Liq 25 MG/ML 100 ML Bottle PO SCH (08:14)
--- NOTE | 2017-11-22 09:46 | GIPROC ---
[facility] [address] [facility]. [facility], [address] COLONOSCOPY PROCEDURE REPORT EXAM DATE: 11/22/2017 PATIENT NAME: Kevin Tamez MR #: [id number] BIRTHDATE: 1940 ENDOSCOPIST: Sean Murphy MD ORDER #: [id number] NAIL GALVANIZER: Ras Hanson STATUS: inpatient INDICATIONS: The patient is a 77 yr old male here for a colonoscopy due to heme-positive stool and recent acute diverticulitis PROCEDURE PERFORMED: Colonoscopy, diagnostic MEDICATIONS: None and Per Anesthesia. PREP QUALITY: poor ESTIMATED BLOOD LOSS: None CONSENT: The patient understands the risks and benefits of the procedure and understands that these risks include, but are not limited to: sedation, allergic reaction, infection, perforation and/or bleeding. Alternative means of evaluation and treatment include, among others: physical exam, x-rays, and/or surgical intervention. The patient elects to proceed with this endoscopic procedure. medical equipment was checked for proper function. Hand hygiene and appropriate measures for infection prevention was taken. After the risks, benefits and alternatives of the procedure were thoroughly explained, Informed consent was verified, confirmed and timeout was successfully executed by the treatment team. A digital exam was performed and revealed no abnormalities of the rectum The Pentax EC-[id number] endoscope was introduced through the anus and advanced to the cecum, which was identified by both the appendix and ileocecal valve. The instrument was then slowly withdrawn as the colon was fully examined. COLON FINDINGS: Angioectasia x 2 in cecum and ascending colon. No bleeding,or SRH. There was moderate diverticulosis noted in the descending colon and sigmoid colon with associated inflammatory changes. Retroflexed views revealed internal hemorrhoids and Retroflexed views revealed small internal hemorrhoids The scope was then completely withdrawn from the patient and the procedure terminated. PROCEDURE WITHDRAWAL TIME:8minutes ADVERSE EVENTS: There were no complications. IMPRESSIONS: 1. Angioectasia x 2 in cecum and ascending colon. No bleeding,or SRH 2. There was moderate diverticulosis noted in the descending colon and sigmoid colon 3. Retroflexed views revealed internal hemorrhoids 4. Retroflexed views revealed small internal hemorrhoids 5. Was performed 6. Revealed no abnormalities of the rectum RECOMMENDATIONS: Monitor labs RECALL: Return 1 year Colonoscopy Sean Murphy MD eSigned: Sean Murphy MD 11/22/2017 9:45 AM cc: PATIENT NAME: Kevin Tamez MR#: [id number]
--- NOTE | 2017-11-22 09:49 | GIPROC ---
[facility] [address] [facility]. [facility], [address] EGD PROCEDURE REPORT EXAM DATE: 11/22/2017 PATIENT NAME: Kevin Tamez MR #: [id number] BIRTHDATE: 1940 ATTENDING: Sean Murphy MD ORDER #: [id number] CAB DRIVER: Ras Hanson STATUS: inpatient INDICATIONS: The patient is a 77 yr old male here for an EGD due to heme positive stool PROCEDURE PERFORMED: EGD, diagnostic MEDICATIONS: None and Per Anesthesia. TOPICAL ANESTHETIC: none CONSENT: The patient understands the risks and benefits of the procedure and understands that these risks include, but are not limited to: sedation, allergic reaction, infection, perforation and/or bleeding. Alternative means of evaluation and treatment include, among others: physical exam, x-rays, and/or surgical intervention. The patient elects to proceed with this endoscopic procedure. medical equipment was checked for proper function. Hand hygiene and appropriate measures for infection prevention was taken. After the risks, benefits and alternatives of the procedure were thoroughly explained, Informed consent was verified, confirmed and timeout was successfully executed by the treatment team. The patient was anesthetized with topical anesthesia and the EC-[id number] (Pedi C) endoscope was introduced through the mouth and advanced to the second portion of the duodenum. Retroflexed views revealed a hiatal hernia The gastroscope was then slowly withdrawn and removed. ESOPHAGUS: The mucosa of the esophagus appeared normal. STOMACH: There was mild antral gastropathy noted. Cold forcep biopsies were taken at the antrum and angularis. A medium sized non-bleeding angioectasia was found in the gastric fundus. DUODENUM: The duodenal mucosa appeared normal in the entire duodenum. ADVERSE EVENTS: There were no complications. IMPRESSIONS: 1. The esophagus appeared normal 2. There was mild antral gastropathy noted [T2] 3. Non-bleeding angioectasia in the gastric fundus 4. Normal duodenal mucosa in the entire duodenum 5. Retroflexed views revealed a hiatal hernia RECOMMENDATIONS: Await biopsy results. Biopsy results will not be ready for 7-10 days. If you don't hear from us in two weeks, call our office for biopsy results. PATIENT CONDITION: stable DISPOSITION: Inpatient REPEAT EXAM: Return as needed for EGD Sean Murphy MD eSigned: Sean Murphy MD 11/22/2017 9:49 AM cc: PATIENT NAME: Kevin Tamez MR#: [id number]
[2017-11-22] MEDS: Senna/Docusate Sodium 8.6/50 MG Tablet PO SCH (11:10)
[2017-11-22] MEDS: Cilostazol 50 MG Tablet PO SCH (11:36)
--- NOTE | 2017-11-22 11:40 | P.DS ---
<Chayo Joiner W - Last Filed: 11/22/17 12:09> Date of admission: 11/17/17 23:45 Primary care physician: UNKNOWN Attending physician on discharge: Michael Dickson Anticipated date of discharge: 11/23/17 Brief History from admission: The patient is a reportedly 77 year old male who presents to the [facility] emergency department with a history of being brought in as a STEMI alert by ambulance services after the patient was noted to have ST segment elevation in the inferior leads and depression in the lateral leads. The patient denied having any chest pain, chest pressure, or shortness of breath. The patient reports that he called ambulance services for abdominal pain. He reports that the abdominal pain is a severe cramping sensation in the lower portion of his abdomen and bilateral lower quadrants. He reports that the abdominal pain began 1-1/2 hours ago. He reports that over the last week and a half he is also had diarrhea intermittently. He denies noticing any blood in his stool or black or tarry stools. Upon ambulance services arrival the patient's blood pressure was noted to be in the 80s systolic. The patient had IV access obtained and was given normal saline at 900 mL bolus times with improvement in his blood pressure up to 106 systolic just prior to arrival. The patient had dusky coloration to his lips, however his O2 saturation was reportedly 96% on room air. The patient's blood sugar prior to arrival was reportedly 219. The patient reportedly has a history of hypertension, diabetes, coronary artery disease with a stent placed previously. 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 The patient denies having any known recent fevers, cough, congestion, neck pain, vomiting, urinary symptoms, or neurologic symptoms. Patient does not recall any of his home medications and did call his sister who will retrieve the list in AM. According to patient his sister comes to his house and gives him his medications. Patient has slight elevation troponin and ekg on review may have chronic changes ,lab work suggests sepsis ,and CT abdomen suggests diverticulitis . Patient will start on antibiotics tonight with fluids. DS: Diagnosis - Discharge Diagnosis (1) Diverticulitis Status: Acute (2) Generalized weakness Status: Acute (3) Gait abnormality Status: Acute (4) Elevated troponin Status: Acute DS: Medications - Discharge Medications Prescriptions: levofloxacin [Levaquin] 500 mg PO DAILY 3 Days #3 tab metronidazole [Flagyl] 500 mg PO TID 3 Days #9 tab DS: Summary Hospital Course: Diverticulitis Patient initially brought into the hospital as a Bert Evans STEMI ALERT Patient actual name Kevin Tamez 1940 Patient has been evaluated and cleared per cardiology. His initially EKG shows right bundle branch block, inferior Q waves, nonspecific T-wave changes; all chronic findings and unchanged from previous EKG 08/31/16. Patient does however have diverticulitis and dehydration Patient reports he called ambulance services for abdominal pain. He reports that the abdominal pain is a severe cramping sensation in the lower portion of his abdomen and bilateral lower quadrants. He reports that the abdominal pain began 1-1/2 hours ago. He reports that over the last week and a half he is also had diarrhea intermittently. He denies noticing any blood in his stool or black or tarry stools. Upon ambulance services arrival the patient's blood pressure was noted to be in the 80s systolic. The patient had IV access obtained and was given normal saline at 900 mL bolus times with improvement in his blood pressure up to 106 systolic just prior to arrival. The patient reportedly has a history of hypertension, diabetes, coronary artery disease with a stent placed previously, dementia, psychosis, hypothyroidism and BPH. Diverticulitis Patient reports he called ambulance services for abdominal pain. He reports that the abdominal pain is a severe cramping sensation in the lower portion of his abdomen and bilateral lower quadrants. He reports that the abdominal pain began 1-1/2 hours ago. He reports that over the last week and a half he is also had diarrhea intermittently. He denies noticing any blood in his stool or black or tarry stools. Abdomen/Pelvis CT 11/17/17 reviewed and reveals: 1. Apparent mild acute diverticulitis involving the sigmoid colon. 2. Focal infrarenal saccular abdominal aortic aneurysm measuring up to 4.1 x 4.1 cm. 3. Status post cholecystectomy. - Zosyn, changed to PO ABX - continue levaquin & flagyl - Pt now with BRB per rectum - Hg dropped one point in 24 hours, - Hg 12.7 (11/19), 11.8 (11/20) - Request GI consultation - DVT prophylaxis with SCDs - supportive care Elevated troponin Patient initially brought into the hospital as a Bert Evans STEMI ALERT Patient actual name Kevin Tamez 1940 Patient has been evaluated and cleared per cardiology. His initially EKG shows right bundle branch block, inferior Q waves, nonspecific T-wave changes; all chronic findings and unchanged from previous EKG 08/31/16. initial troponin 0.43, 0.49 per cardiology likely demand related Dementia, psychosis resume home risperidone HTN resume home Lisinopril 10 mg PO daily and metoprolol 25mg PO BID BPH continue home Flomax Rectal bleeding hgb 12.7 (11/19) -> 11.8 (11/20) GI consulted, had planned for colonoscopy (11/21) but patient refused prep the night prior - Pt's sister updated by phone while at the pt's bedside (11/21) - S/P colonoscopy 11/[address] Murphy - colonoscopy revealed: 1. Angioectasia x 2 in cecum and ascending colon. No bleeding,or SRH 2. There was moderate diverticulosis noted in the descending colon and sigmoid colon 3. Retroflexed views revealed internal hemorrhoids 4. Retroflexed views revealed small internal hemorrhoids 5. Was performed 6. Revealed no abnormalities of the rectum - S/P EGD 11/[address] Murphy - EGD revealed: 1. The esophagus appeared normal 2. There was mild antral gastropathy noted [T2] 3. Non-bleeding angioectasia in the gastric fundus 4. Normal duodenal mucosa in the entire duodenum 5. Retroflexed views revealed a hiatal hernia - DC to SNF Consult PT and case management - Time Spent with Patient Total time spent providing and/or coordinating discharge services: Greater than 30 minutes Exam Vital signs: Vital Signs 11/21/17 13:00 11/21/17 14:00 11/21/17 15:00 Temperature 97.7 F Pulse Rate 87 80 101 H Respiratory Rate 18 Blood Pressure 154/100 H Pulse Oximetry 99 11/21/17 16:00 11/21/17 17:00 11/21/17 17:03 Temperature Pulse Rate 64 76 Respiratory Rate Blood Pressure Pulse Oximetry 99 11/21/17 18:00 11/21/17 19:00 11/21/17 20:00 Temperature 98.8 F 98 F Pulse Rate 76 74 74 Respiratory Rate 18 Blood Pressure 150/66 H 156/66 H Pulse Oximetry 97 97 11/21/17 21:00 11/21/17 22:00 11/21/17 23:00 Temperature Pulse Rate 68 66 75 Respiratory Rate Blood Pressure Pulse Oximetry 11/22/17 00:00 11/22/17 01:00 11/22/17 02:00 Temperature Pulse Rate 76 64 62 Respiratory Rate Blood Pressure Pulse Oximetry 11/22/17 03:00 11/22/17 04:00 11/22/17 05:00 Temperature 98.4 F Pulse Rate 63 60 64 Respiratory Rate 18 Blood Pressure 164/66 H Pulse Oximetry 97 11/22/17 06:00 11/22/17 07:00 11/22/17 08:00 Temperature 98.5 F Pulse Rate 62 76 Respiratory Rate 20 Blood Pressure 175/81 H Pulse Oximetry 95 95 Intake & Output 11/21/17 11/22/17 11/22/17 18:59 06:59 18:59 Intake Total 2600 / 2600 100 / 100 Output Total 2 / 2 450 / 450 Balance 2598 / 2598 -450 / -450 100 / 100 Weight 84.5 kg Intake: Oral 2600 / 2600 Anesthesia Amount 100 / 100 Output: Urine 2 / 2 450 / 450 Other: Date of Last Bowel Movement 11/21/17 11/21/17 # Bowel Movements 20 6 # Incontinent Bowel Movements 3 Narrative: GENERAL: This is a well-nourished, well-developed patient, in no apparent distress. CARDIOVASCULAR: Regular rate and rhythm RESPIRATORY: Clear to auscultation. Breath sounds equal bilaterally. GASTROINTESTINAL: Abdomen soft, non-tender, nondistended. Normal active bowel sounds MUSCULOSKELETAL: Extremities without clubbing, cyanosis, or edema. NEURO: Alert & Oriented, but confused at times Results Procedures completed during hospitalization: EGD and colonoscopy 11/22/[address] Murphy Pending studies at discharge: Pending at discharge 11/22/17 Surgical [PTH] Routine Labs on day of discharge: Labs from last 24 hours 11/22/17 11/22/17 11/22/17 07:47 05:25 05:25 WBC 4.7 RBC 3.82 L Hgb 11.7 L Hct 34.8 L MCV 91.0 MCH 30.7 MCHC 33.7 RDW 13.8 Plt Count 152 MPV 9.0 Neut % (Auto) 53.1 Lymph % (Auto) 30.7 Desha % (Auto) 9.2 H Eos % (Auto) 6.2 H Baso % (Auto) 0.8 Neut # (Auto) 2.5 Lymph # (Auto) 1.5 Desha # (Auto) 0.4 Eos # (Auto) 0.3 Baso # (Auto) 0.0 WBC Differential . Differential Comment Auto diff final Sodium 142 Potassium 3.7 Chloride 108 H Carbon Dioxide 25.4 Anion Gap 9 BUN 8 Creatinine 1.07 Estimated GFR 67 L POC Glucose 96 Random Glucose 99 Calcium 7.6 L - Impressions ITS Impressions Chest X-Ray 11/17/17 00:00 CONCLUSION: No acute cardiopulmonary disease. Abdomen/Pelvis CT 11/17/17 22:10 CONCLUSION: 1. Apparent mild acute diverticulitis involving the sigmoid colon. 2. Focal infrarenal saccular abdominal aortic aneurysm measuring up to 4.1 x 4.1 cm. 3. Status post cholecystectomy. <Michael Dickson - Last Filed: 11/22/17 12:16> Date of admission: 11/17/17 23:45 Primary care physician: UNKNOWN Anticipated date of discharge: 11/22/17 DS: Diagnosis - Discharge Diagnosis (1) Diverticulitis Status: Acute (2) Elevated troponin Status: Acute DS: Summary Hospital Course: Patient examined. Assessment and plan formulated with Chayo Joiner PA-C. I agree with the above. Pt and pt's sister, Anita (by phone), updated at the bedside. - Time Spent with Patient Total time spent providing and/or coordinating discharge services: Exam Vital signs: Vital Signs 11/21/17 13:00 11/21/17 14:00 11/21/17 15:00 Temperature 97.7 F Pulse Rate 87 80 101 H Respiratory Rate 18 Blood Pressure 154/100 H Pulse Oximetry 99 11/21/17 16:00 11/21/17 17:00 11/21/17 17:03 Temperature Pulse Rate 64 76 Respiratory Rate Blood Pressure Pulse Oximetry 99 11/21/17 18:00 11/21/17 19:00 11/21/17 20:00 Temperature 98.8 F 98 F Pulse Rate 76 74 74 Respiratory Rate 18 18 Blood Pressure 150/66 H 156/66 H Pulse Oximetry 97 97 11/21/17 21:00 11/21/17 22:00 11/21/17 23:00 Temperature Pulse Rate 68 66 75 Respiratory Rate Blood Pressure Pulse Oximetry 11/22/17 00:00 11/22/17 01:00 11/22/17 02:00 Temperature Pulse Rate 76 64 62 Respiratory Rate Blood Pressure Pulse Oximetry 11/22/17 03:00 11/22/17 04:00 11/22/17 05:00 Temperature 98.4 F Pulse Rate 63 60 64 Respiratory Rate 18 Blood Pressure 164/66 H Pulse Oximetry 97 11/22/17 06:00 11/22/17 07:00 11/22/17 08:00 Temperature 98.5 F Pulse Rate 62 76 62 Respiratory Rate 20 Blood Pressure 175/81 H Pulse Oximetry 95 95 11/22/17 10:00 11/22/17 11:00 Temperature 98.6 F Pulse Rate 66 70 Respiratory Rate 20 Blood Pressure 150/82 H Pulse Oximetry 98 Intake & Output 11/21/17 11/22/17 11/22/17 18:59 06:59 18:59 Intake Total 2600 / 2600 100 / 100 Output Total 2 / 2 450 / 450 Balance 2598 / 2598 -450 / -450 100 / 100 Weight 84.5 kg Intake: Oral 2600 / 2600 Anesthesia Amount 100 / 100 Output: Urine 2 / 2 450 / 450 Other: Date of Last Bowel Movement 11/21/17 11/21/17 # Bowel Movements 20 6 # Incontinent Bowel Movements 3 Results Pending studies at discharge: Pending at discharge 11/22/17 Surgical [PTH] Routine Labs on day of discharge: Labs from last 24 hours 11/22/17 11/22/17 11/22/17 07:47 05:25 05:25 WBC 4.7 RBC 3.82 L Hgb 11.7 L Hct 34.8 L MCV 91.0 MCH 30.7 MCHC 33.7 RDW 13.8 Plt Count 152 MPV 9.0 Neut % (Auto) 53.1 Lymph % (Auto) 30.7 Desha % (Auto) 9.2 H Eos % (Auto) 6.2 H Baso % (Auto) 0.8 Neut # (Auto) 2.5 Lymph # (Auto) 1.5 Desha # (Auto) 0.4 Eos # (Auto) 0.3 Baso # (Auto) 0.0 WBC Differential . Differential Comment Auto diff final Sodium 142 Potassium 3.7 Chloride 108 H Carbon Dioxide 25.4 Anion Gap 9 BUN 8 Creatinine 1.07 Estimated GFR 67 L POC Glucose 96 Random Glucose 99 Calcium 7.6 L - Impressions ITS Impressions Chest X-Ray 11/17/17 00:00 CONCLUSION: No acute cardiopulmonary disease. Abdomen/Pelvis CT 11/17/17 22:10 CONCLUSION: 1. Apparent mild acute diverticulitis involving the sigmoid colon. 2. Focal infrarenal saccular abdominal aortic aneurysm measuring up to 4.1 x 4.1 cm. 3. Status post cholecystectomy. Discharge Plan - Discharge Order Discharge Orders: Discharge Order (Routine); Ordered 11/22/17 Ordered By: Chayo Joiner - Discharge Details Anticipated Discharge Date: 11/22/17 - Physicians Team Primary Care Provider: UNKNOWN, Attending Provider: Michael Dickson Other Providers: Tico Stevenson DO ; Richi Li MD
[2017-11-22] MEDS ORDERED: Lidocaine PF 1% Inj 5 ML Syringe INFILTRATN ONE (12:00)
== END 2017-11-22 12:44 ==
LOC: NEPC 21:13 → EDBD 23:45 → NEDA 23:45 → NEDH 11-18 04:45 → HCIS 11-18 16:25
PROVIDERS: ADMIT Hospitalist; ATTEND Hospitalist
PROC: COLONOS (2017-11-22 08:52)
PROC: PANENDO (2017-11-22 08:52)